=== PATIENT | male | born 1955 | race Caucasian/White ===

== ENCOUNTER 2018-11-18 02:48 | Observation (INO) | payer OTHER ==
--- NOTE | 2018-11-18 03:17 | ER ---
Nurse's Notes [facility] Name: Elpidio Sloan Age: 63 yrs Sex: Male : 1955 Arrival Date: 11/18/2018 Time: 02:54 Bed 5 Private MD: Diagnosis: Chest pain, unspecified;Obesity, unspecified;Dyspnea;Angina pectoris;Type 2 diabetes mellitus Presentation: 11/18 02:55 Presenting complaint: Patient states: Chest pain for the past few days but has worsened lp1 now, unable to lay down flat due to worsening pain; States radiating to back. Transition of care: patient was not received from another setting of care. Onset of symptoms was November 18, 2018. Risk Assessment: Do you want to hurt yourself or someone else? Patient reports no desire to harm self or others. Initial Sepsis Screen: Does the patient meet any 2 criteria? No. Patient's initial sepsis screen is negative. Does the patient have a suspected source of infection? No. Patient's initial sepsis screen is negative. Care prior to arrival: None. 02:55 Method Of Arrival: Wheelchair lp1 02:55 Acuity: JULIEN 3 lp1 Historical: - Allergies: 03:00 Iodine; lp1 03:00 Sulfa (Sulfonamide Antibiotics); lp1 03:00 TETRACYCLINES; lp1 - Home Meds: 03:00 glimepiride 4 mg Oral tab 1 tab once daily [Active]; Synjardy 12.5-1,000 mg oral tab lp1 [Active]; isosorbide mononitrate 30 mg Oral Tb24 [Active]; atenolol 50 mg Oral tab [Active]; fenofibrate nanocrystallized 145 mg oral tab [Active]; Effient 10 mg Oral tab 1 tab once daily [Active]; Lipitor 80 mg Oral tab 1 tab once daily [Active]; lansoprazole 30 mg oral cpDR once daily [Active]; quinapril 10 mg Oral tab 1 tab once daily [Active]; venlafaxine 75 mg oral cp24 1 cap once daily [Active]; quetiapine 25 mg oral tab [Active]; - PMHx: 03:00 CAD; Depression; Diabetes - NIDDM; GERD; High Cholesterol; Hyperlipidemia; lp1 Hypertension; Myocardial infarction; - PSHx: 03:00 CABG; Heart stents x6; Partial knee replacement; lp1 - Immunization history:: Adult Immunizations up to date. - Ebola Screening: : No symptoms or risks identified at this time. - Social history:: Smoking status: Patient/guardian denies using tobacco. - Family history:: not pertinent. Screenin:01 Abuse screen: Denies threats or abuse. Denies injuries from another. Nutritional lp1 screening: No deficits noted. Tuberculosis screening: No symptoms or risk factors identified. Fall Risk None identified. Assessment: 03:05 General: Appears in no apparent distress. comfortable, Behavior is calm, cooperative, ca1 appropriate for age. Pain: Complains of pain in chest Pain currently is 5 out of 10 on a pain scale. Neuro: Level of Consciousness is awake, alert, obeys commands, Oriented to person, place, time, situation. Cardiovascular: Heart tones S1 S2 present Capillary refill < 3 seconds Patient's skin is warm and dry. Respiratory: Airway is patent Trachea midline Respiratory effort is even, unlabored, Respiratory pattern is regular, symmetrical, Breath sounds are clear bilaterally. GI: Abdomen is round non-distended, Bowel sounds present X 4 quads. Abd is soft and non tender X 4 quads. : No signs and/or symptoms were reported regarding the genitourinary system. EENT: No signs and/or symptoms were reported regarding the EENT system. Derm: Skin is intact, is healthy with good turgor, Skin is pink, warm \T\ dry. Musculoskeletal: Circulation, motion, and sensation intact. Capillary refill < 3 seconds, Range of motion: intact in all extremities. 04:05 Reassessment: Patient appears in no apparent distress at this time. Patient and/or ca1 family updated on plan of care and expected duration. Pain level reassessed. Patient is alert, oriented x 3, equal unlabored respirations, skin warm/dry/pink. Awaiting lab results before calling report and admitting patient to 2nd floor. 05:25 Reassessment: Patient appears in no apparent distress at this time. Patient and/or ca1 family updated on plan of care and expected duration. Pain level reassessed. Patient is alert, oriented x 3, equal unlabored respirations, skin warm/dry/pink. Vital Signs: 02:56 BP 141 / 105; Pulse 80; Resp 16; Temp 98.4(O); Pulse Ox 99% on R/A; Weight 111.13 kg; lp1 Height 5 ft. 10 in. (177.80 cm); Pain 5/10; 04:05 BP 124 / 74; Pulse 68; Resp 17; Pulse Ox 97% on R/A; Pain 2/10; ca1 04:30 BP 126 / 86; Pulse 68; Resp 18; Pulse Ox 96% on R/A; ca1 05:15 BP 133 / 80; Pulse 66; Resp 19; Pulse Ox 96% on R/A; ca1 05:43 BP 126 / 66; Pulse 66; Resp 19; Pulse Ox 97% on R/A; ca1 02:56 Body Mass Index 35.15 (111.13 kg, 177.80 cm) lp1 ED Course: 02:54 Patient arrived in ED. al2 02:56 Triage completed. lp1 02:57 Vikas Dong MD is Attending Physician. jacey 02:57 Arm band placed on left wrist. lp1 03:01 Patient has correct armband on for positive identification. Placed in gown. Bed in low lp1 position. conveyor monitor on. Pulse ox on. NIBP on. 03:01 EKG done, by ED staff, reviewed by Vikas Dong MD. lp1 03:05 Warm blanket given. ca1 03:10 Missed attempt(s): 20 gauge in left forearm. ca1 03:14 Smith Cerrato MD is Hospitalizing Provider. jacey 03:15 X-ray completed. Portable x-ray completed in exam room. Patient tolerated procedure kw well. 03:16 XRAY Chest (1 view) In Process Unspecified. EDMS 03:19 Inserted saline lock: 20 gauge in left antecubital area, using aseptic technique. lt1 03:43 Rae Ji, RN is Primary Nurse. ca1 03:55 No provider procedures requiring assistance completed. Patient admitted, IV remains in ca1 place. Administered Medications: 03:10 Drug: Aspirin 162 mg Route: PO; ca1 04:09 Follow up: Response: No adverse reaction ca1 03:12 Drug: Lopressor (metoprolol TARTRATE) 50 mg Route: PO; ca1 04:09 Follow up: Response: No adverse reaction; Blood pressure is lowered ca1 03:13 Drug: Lovenox 1 mg/kg Route: Sub-Q; Site: right lower abdomen; ca1 04:10 Follow up: Response: No adverse reaction ca1 03:30 Drug: morphine 2 mg Route: IVP; Site: left antecubital; ca1 04:10 Follow up: Response: No adverse reaction; Pain is decreased ca1 03:32 Drug: Zofran 4 mg Route: IVP; Site: left antecubital; ca1 04:10 Follow up: Response: No adverse reaction; Nausea is decreased ca1 03:35 Drug: ProTONIX 40 mg Route: IVP; Site: left antecubital; ca1 04:11 Follow up: Response: No adverse reaction ca1 03:50 Drug: Isosorbide Mononitrate 30 mg Route: PO; ca1 04:11 Follow up: Response: No adverse reaction ca1 05:48 Drug: morphine 2 mg Route: IVP; Site: left antecubital; ca1 05:50 Follow up: Response: No adverse reaction; Pain is decreased ca1 Outcome: 03:16 Decision to Hospitalize by Provider. jacey 05:35 Admitted to Med/surg accompanied by tech, via wheelchair, room 224, with chart, Report ca1 called to Geovany Lee RN 05:35 Condition: stable 05:35 Instructed on the need for admit, Demonstrated understanding of instructions. 05:59 Patient left the ED. ca1 Signatures: Dispatcher [employer] EDMS Vikas Dong MD MD cha Whitley, Kimberlee kw Pena, Laura RN RN lp1 Jovita Emanuel Cheryl RN RN ca1 Rupa Rivas lt1 Corrections: (The following items were deleted from the chart) 03:54 03:44 General: Appears in no apparent distress. comfortable, Behavior is calm, ca1 cooperative, appropriate for age, ca1 03:54 03:44 Pain: Complains of pain in chest Pain currently is 5 out of 10 on a pain scale. ca1 ca1 03:54 03:44 Neuro: Level of Consciousness is awake, alert, obeys commands, Oriented to ca1 person, place, time, situation, ca1 03:54 03:44 Cardiovascular: Heart tones S1 S2 present Capillary refill < 3 seconds Patient's ca1 skin is warm and dry. ca1 03:54 03:44 Respiratory: Airway is patent Trachea midline Respiratory effort is even, ca1 unlabored, Respiratory pattern is regular, symmetrical, Breath sounds are clear bilaterally. ca1 03:54 03:44 GI: Abdomen is round non-distended, Bowel sounds present X 4 quads. Abd is soft ca1 and non tender X 4 quads. ca1 : 03:44 : No signs and/or symptoms were reported regarding the genitourinary system. ca1ca1 03:44 EENT: No signs and/or symptoms were reported regarding the EENT system. ca1 ca1 03:44 Derm: Skin is intact, is healthy with good turgor, Skin is pink, warm \T\ dry. ca1 ca1 03:44 Musculoskeletal: Circulation, motion, and sensation intact. Capillary refill < 3 ca1 seconds, Range of motion: intact in all extremities, ca1
--- NOTE | 2018-11-18 03:17 | EDPHYS ---
Physician Documentation [facility] Name: Elpidio Sloan Age: 63 yrs Sex: Male : 1955 Arrival Date: 11/18/2018 Time: 02:54 Bed 5 Private MD: KASIA Physician Vikas Dong HPI: 11/18 03:07 This 63 yrs old Male presents to ER via Wheelchair with complaints of chest jacey pain and sob. 03:07 The patient has shortness of breath at rest, with light activity. Onset: The jacey symptoms/episode began/occurred 4 day(s) ago. Duration: The symptoms are intermittent, with episodes lasting minutes at a time. The patient's shortness of breath is aggravated by exertion, light activity, walking, is alleviated by elevating head, rest, application of supplemental oxygen. The patient or guardian reports chest pain that is located primarily in the epigastric area. Onset: 5 day(s) ago. The pain radiates to the left arm. Associated signs and symptoms: The patient has no apparent associated signs or symptoms. Severity of symptoms: At their worst the symptoms were mild moderate in the emergency department the symptoms have improved moderately. Associated signs and symptoms: Pertinent positives: lightheadedness, shortness of breath. Historical: - Allergies: 03:00 Iodine; lp1 03:00 Sulfa (Sulfonamide Antibiotics); lp1 03:00 TETRACYCLINES; lp1 - Home Meds: 03:00 glimepiride 4 mg Oral tab 1 tab once daily [Active]; Synjardy 12.5-1,000 mg oral tab lp1 [Active]; isosorbide mononitrate 30 mg Oral Tb24 [Active]; atenolol 50 mg Oral tab [Active]; fenofibrate nanocrystallized 145 mg oral tab [Active]; Effient 10 mg Oral tab 1 tab once daily [Active]; Lipitor 80 mg Oral tab 1 tab once daily [Active]; lansoprazole 30 mg oral cpDR once daily [Active]; quinapril 10 mg Oral tab 1 tab once daily [Active]; venlafaxine 75 mg oral cp24 1 cap once daily [Active]; quetiapine 25 mg oral tab [Active]; - PMHx: 03:00 CAD; Depression; Diabetes - NIDDM; GERD; High Cholesterol; Hyperlipidemia; lp1 Hypertension; Myocardial infarction; - PSHx: 03:00 CABG; Heart stents x6; Partial knee replacement; lp1 - Immunization history:: Adult Immunizations up to date. - Ebola Screening: : No symptoms or risks identified at this time. - Social history:: Smoking status: Patient/guardian denies using tobacco. - Family history:: not pertinent. ROS: 03:07 Constitutional: Negative for fever, chills, and weight loss, Eyes: Negative for injury, jacey pain, redness, and discharge, ENT: Negative for injury, pain, and discharge, Neck: Negative for injury, pain, and swelling, Abdomen/GI: Negative for abdominal pain, nausea, vomiting, diarrhea, and constipation, Back: Negative for injury and pain, : Negative for injury, bleeding, discharge, and swelling, MS/Extremity: Negative for injury and deformity, Skin: Negative for injury, rash, and discoloration, Neuro: Negative for headache, weakness, numbness, tingling, and seizure, Psych: Negative for depression, anxiety, suicide ideation, homicidal ideation, and hallucinations, Allergy/Immunology: Negative for hives, rash, and allergies, Endocrine: Negative for neck swelling, polydipsia, polyuria, polyphagia, and marked weight changes, Hematologic/Lymphatic: Negative for swollen nodes, abnormal bleeding, and unusual bruising. 03:07 Cardiovascular: Positive for chest pain. 03:07 Respiratory: Positive for shortness of breath, on exertion. Exam: 03:07 Constitutional: This is a well developed, well nourished patient who is awake, alert, jacey and in no acute distress. Head/Face: Normocephalic, atraumatic. Eyes: Pupils equal round and reactive to light, extra-ocular motions intact. Lids and lashes normal. Conjunctiva and sclera are non-icteric and not injected. Cornea within normal limits. Periorbital areas with no swelling, redness, or edema. ENT: Nares patent. No nasal discharge, no septal abnormalities noted. Tympanic membranes are normal and external auditory canals are clear. Oropharynx with no redness, swelling, or masses, exudates, or evidence of obstruction, uvula midline. Mucous membranes moist. Neck: Trachea midline, no thyromegaly or masses palpated, and no cervical lymphadenopathy. Supple, full range of motion without nuchal rigidity, or vertebral point tenderness. No Meningismus. Chest/axilla: Normal chest wall appearance and motion. Nontender with no deformity. No lesions are appreciated. Cardiovascular: Regular rate and rhythm with a normal S1 and S2. No gallops, murmurs, or rubs. Normal PMI, no JVD. No pulse deficits. Respiratory: Lungs have equal breath sounds bilaterally, clear to auscultation and percussion. No rales, rhonchi or wheezes noted. No increased work of breathing, no retractions or nasal flaring. Abdomen/GI: Soft, non-tender, with normal bowel sounds. No distension or tympany. No guarding or rebound. No evidence of tenderness throughout. Back: No spinal tenderness. No costovertebral tenderness. Full range of motion. Skin: Warm, dry with normal turgor. Normal color with no rashes, no lesions, and no evidence of cellulitis. MS/ Extremity: Pulses equal, no cyanosis. Neurovascular intact. Full, normal range of motion. Neuro: Awake and alert, GCS 15, oriented to person, place, time, and situation. Cranial nerves II-XII grossly intact. Motor strength 5/5 in all extremities. Sensory grossly intact. Cerebellar exam normal. Normal gait. Psych: Awake, alert, with orientation to person, place and time. Behavior, mood, and affect are within normal limits. Vital Signs: 02:56 BP 141 / 105; Pulse 80; Resp 16; Temp 98.4(O); Pulse Ox 99% on R/A; Weight 111.13 kg; lp1 Height 5 ft. 10 in. (177.80 cm); Pain 5/10; 04:05 BP 124 / 74; Pulse 68; Resp 17; Pulse Ox 97% on R/A; Pain 2/10; ca1 04:30 BP 126 / 86; Pulse 68; Resp 18; Pulse Ox 96% on R/A; ca1 05:15 BP 133 / 80; Pulse 66; Resp 19; Pulse Ox 96% on R/A; ca1 05:43 BP 126 / 66; Pulse 66; Resp 19; Pulse Ox 97% on R/A; ca1 02:56 Body Mass Index 35.15 (111.13 kg, 177.80 cm) lp1 MDM: 02:57 Patient medically screened. [facility] 03:13 Data reviewed: vital signs, nurses notes, lab test result(s), EKG, radiologic studies, jacey CT scan, plain films. 11/18 02:55 Order name: Basic Metabolic Panel lp1 11/18 02:55 Order name: CBC with Diff; Complete Time: 04:03 lp1 11/18 02:55 Order name: LFT's lp1 11/18 02:55 Order name: Magnesium lp1 11/18 02:55 Order name: NT PRO-BNP lp1 11/18 02:55 Order name: PT-INR; Complete Time: 04:03 lp1 11/18 02:55 Order name: Troponin (emerg Dept Use Only) lp1 11/18 02:55 Order name: XRAY Chest (1 view) lp1 11/18 03:07 Order name: Lipase [facility] 11/18 03:25 Order name: Lipase EDKS 11/18 02:55 Order name: EKG; Complete Time: 02:56 lp1 11/18 02:55 Order name: Cardiac monitoring; Complete Time: 03:07 lp1 11/18 02:55 Order name: EKG - Nurse/Tech; Complete Time: 03:07 lp1 11/18 02:55 Order name: IV Saline Lock; Complete Time: 03:08 lp1 11/18 02:55 Order name: Labs collected and sent; Complete Time: 03:08 lp1 11/18 02:55 Order name: O2 Per Protocol; Complete Time: 03:08 lp1 11/18 02:55 Order name: O2 Sat Monitoring; Complete Time: 03:08 lp1 11/18 03:22 Order name: CONS Physician Consult EDKS Administered Medications: 03:10 Drug: Aspirin 162 mg Route: PO; ca1 04:09 Follow up: Response: No adverse reaction ca1 03:12 Drug: Lopressor (metoprolol TARTRATE) 50 mg Route: PO; ca1 04:09 Follow up: Response: No adverse reaction; Blood pressure is lowered ca1 03:13 Drug: Lovenox 1 mg/kg Route: Sub-Q; Site: right lower abdomen; ca1 04:10 Follow up: Response: No adverse reaction ca1 03:30 Drug: morphine 2 mg Route: IVP; Site: left antecubital; ca1 04:10 Follow up: Response: No adverse reaction; Pain is decreased ca1 03:32 Drug: Zofran 4 mg Route: IVP; Site: left antecubital; ca1 04:10 Follow up: Response: No adverse reaction; Nausea is decreased ca1 03:35 Drug: ProTONIX 40 mg Route: IVP; Site: left antecubital; ca1 04:11 Follow up: Response: No adverse reaction ca1 03:50 Drug: Isosorbide Mononitrate 30 mg Route: PO; ca1 04:11 Follow up: Response: No adverse reaction ca1 05:48 Drug: morphine 2 mg Route: IVP; Site: left antecubital; ca1 05:50 Follow up: Response: No adverse reaction; Pain is decreased ca1 Disposition: 11/18/18 03:16 Hospitalization ordered by Smith Cerrato for Observation. Preliminary diagnosis are Chest pain, unspecified, Obesity, unspecified, Dyspnea, Angina pectoris, Type 2 diabetes mellitus. - Bed requested for Telemetry/MedSurg (observation). - Status is Observation. ca1 - Condition is Stable. - Problem is new. - Symptoms have improved. UTI on Admission? No Signatures: Dispatcher [employer] EDKS Mayela Patel RN RN mw Anderson, Corey, MD MD cha Pena, Laura, RN RN lp1 Rae Ji RN RN ca1 Corrections: (The following items were deleted from the chart) 03:25 03:08 Lipase ordered. EDKS EDMS 03:40 03:16 Hospitalization Ordered by Smith Cerrato MD for Observation. Preliminary diagnosis mw is Chest pain, unspecified; Obesity, unspecified; Dyspnea; Angina pectoris; Type 2 diabetes mellitus. Bed requested for Telemetry/MedSurg (observation). Status is Observation. Condition is Stable. Problem is new. Symptoms have improved. UTI on Admission? No. jacey 05:59 03:40 11/18/2018 03:16 Hospitalization Ordered by Smith Cerrato MD for Observation. ca1 Preliminary diagnosis is Chest pain, unspecified; Obesity, unspecified; Dyspnea; Angina pectoris; Type 2 diabetes mellitus. Bed requested for Telemetry/MedSurg (observation). Status is Observation. Condition is Stable. Problem is new. Symptoms have improved. UTI on Admission? No. mw
[2018-11-18] MEDS ORDERED: ASPIRIN 81 MG CHEWABLE TABLET ONE (03:23)
[2018-11-18] MEDS ORDERED: METOPROLOL TAR 50 MG TAB ONE (03:23)
[2018-11-18] MEDS ORDERED: ENOXAPARIN 100 MG/ML SYR SQ ONE (03:24)
[2018-11-18 03:31] LABS: Absolute Lymphocytes (CBC) 1.9 K/uL (0.7-4.9); Absolute Monocytes 0.6 K/uL (0.1-1.3); Absolute Neutrophil 2.1 K/uL (1.8-8.0); Basophils % 1.2 % (0-1.3); Eosinophils % 3.8 % (0-4.4); Hematocrit 47.8 % (39.6-49.0); MPV 8.7 fL (7.6-11.3); Monocytes % 13.2 % (3.3-12.3); RBC Red Blood Cell Count 5.16 M/uL (4.33-5.43)
[2018-11-18 03:32] LABS: Protime INR 0.92
[2018-11-18] MEDS ORDERED: PANTOPRAZOLE 40 MG INJ ONE (03:37)
[2018-11-18] MEDS ORDERED: MORPHINE 4 MG/ML SYR ONE (03:37)
[2018-11-18] MEDS ORDERED: WATER FOR INJ,STERILE 10 ML ONE (03:38)
[2018-11-18] MEDS ORDERED: ONDANSETRON 4 MG/2 ML VIAL ONE (03:41)
[2018-11-18] MEDS ORDERED: ISOSORBIDE MONO SR 30 MG TAB PO ONE (03:55)
[2018-11-18] MEDS ORDERED: ONDANSETRON 4 MG/2 ML VIAL IV PRN (04:01)
[2018-11-18] MEDS ORDERED: GLUCAGON 1 MG/VIAL IM PRN (04:01)
[2018-11-18] MEDS ORDERED: ACETAMINOPHEN 500 MG TAB PO PRN (04:01)
[2018-11-18] MEDS ORDERED: MORPHINE 4 MG/ML SYR IV PRN (04:01)
[2018-11-18] MEDS ORDERED: SODIUM CHLORIDE 0.9% 10ML INJ IV PRN (04:01)
[2018-11-18] MEDS ORDERED: D50W 25 GM/50 ML SYRINGE IV PRN (04:01)
[2018-11-18 04:03] LABS: Albumin 3.8 g/dL (3.4-5.0); Bilirubin Direct 0.2 mg/dL (0-0.2); Bilirubin Total 0.6 mg/dL (0.2-1.0); Magnesium 2.3 mg/dL (1.8-2.4); Potassium 4.2 mmol/L (3.5-5.1); Protein, Total 7.3 g/dL (6.4-8.2); Troponin (Emerg Dept Use Only) 0.02 ng/mL (0.0-0.045)
[2018-11-18] MEDS ORDERED: ATENOLOL 50 MG TAB PO SCH (06:00)
[2018-11-18 06:38] LABS: Urine Appearance CLEAR; Urine Bilirubin NEGATIVE (NEG); Urine Blood NEGATIVE (NEG); Urine Color YELLOW; Urine Glucose 3+ (NEG); Urine Protein NEGATIVE (NEG); Urine Specific Gravity >=1.030 (1.005-1.030); Urine pH 5.5 (5.0-7.0)
[2018-11-18 06:51] LABS: Urine Microscopic Reflex ORDER UMIC
[2018-11-18 06:52] LABS: Urine Bacteria <20 /HPF (NONE SEEN); Urine Culture Reflex Order NOT NEEDED; Urine RBC <5 /HPF (NONE SEEN)
[2018-11-18] MEDS: INSULIN -REGULAR HUMAN 50 UNIT/0.5 ML ML SQ SCH ×4 (07:30→22:02)
--- NOTE | 2018-11-18 07:34 | EKG ---
Test Date: 2018-11-18 Test Time: 02:55:29 Sheep Shearer: NEISHA MEASUREMENT RESULTS: Intervals: Rate: 74 NC: 198 QRSD: 142 QT: 402 QTc: 446 Mcdowell: P: 64 NC: 198 QRS: -57 T: 82 INTERPRETIVE STATEMENTS: Normal sinus rhythm Left axis deviation Right bundle branch block T wave abnormality, consider lateral ischemia Abnormal ECG Compared to ECG 07/19/2017 22:35:21 Left-axis deviation now present T-wave abnormality still present Possible ischemia still present Electronically Signed On 11-18-18 07:33:42 EMERGENCY DEPARTMENT COORDINATOR by Samson Shaw
[2018-11-18 07:35] VITALS: BMI 36.0
--- NOTE | 2018-11-18 08:30 | RAD REPORT ---
EXAM DESCRIPTION: Reji Single View11/18/2018 3:18 am CLINICAL HISTORY: Chest pain COMPARISON: 2017 FINDINGS: The lungs appear clear of acute infiltrate. The heart is mildly enlarged. Postsurgical changes involve the chest. IMPRESSION: No acute abnormalities displayed
[2018-11-18] MEDS ORDERED: PRASUGREL (EFFIENT) 10 MG TAB PO SCH (09:00)
[2018-11-18] MEDS: ASPIRIN EC 81 MG TAB PO SCH (09:00)
[2018-11-18] MEDS ORDERED: ISOSORBIDE MONO SR 30 MG TAB PO SCH (09:00)
[2018-11-18] MEDS ORDERED: PANTOPRAZOLE 40 MG INJ IVP SCH (09:00)
[2018-11-18] MEDS ORDERED: PNEUMOCOCCAL VACCINE 0.5 ML IMVAC ONE (09:00)
[2018-11-18] MEDS: LISINOPRIL 10 MG TAB PO SCH (09:51)
[2018-11-18] MEDS ORDERED: HEPA 1000U/500MLS 1,000 UNIT/500 ML BAG IV ONE ×2 (12:14→12:15)
[2018-11-18] MEDS ORDERED: ATROPINE SULF 1 MG/10 ML SYR IV ONE ×2 (12:15→13:29)
[2018-11-18] MEDS ORDERED: FENTANYL CITR 100 MCG/2 ML ONE (12:15)
[2018-11-18] MEDS ORDERED: NA CHLORIDE 0.9% 50 ML ONE (12:15)
[2018-11-18] MEDS ORDERED: MIDAZOLAM HCL 2 MG/2 ML INJ ONE ×2 (12:15→12:58)
[2018-11-18] MEDS ORDERED: LIDOCAINE 1% MPF 5 ML VIAL ONE (12:29)
[2018-11-18] MEDS ORDERED: NA CHLORIDE 0.9% 500 ML ONE (12:42)
[2018-11-18] MEDS ORDERED: METHYLPREDNISOLONE 125 MG INJ ONE (12:52)
[2018-11-18] MEDS ORDERED: CLOPIDOGREL 75 MG TABLET ONE (13:31)
[2018-11-18] MEDS ORDERED: ENOXAPARIN 100 MG/ML SYR SQ SCH (15:00)
[2018-11-18] MEDS ORDERED: NA CHLORIDE 0.9% 1,000 ML IV SCH (16:00)
[2018-11-18] MEDS ORDERED: ATORVASTATIN 80 MG TAB PO SCH (21:00)
[2018-11-18] MEDS ORDERED: QUETIAPINE 25 MG TAB PO PRN (21:21)
--- NOTE | 2018-11-18 21:40 | P.SSS ---
Patient History Date of Service: 11/18/18 Reason for admission: CHEST PAIN History of Present Illness: L SIDE CHEST PAIN WITH RADIATION TO ARM. HE IS A DIABETIC WITH KNOWN CAD. Allergies codeine [Codeine] Allergy (Intermediate, Verified 11/18/18 06:12) ITCH, VOMIT Sulfa (Sulfonamide Antibiotics) [Sulfa(Sulfonamide Antibiotics)] Allergy ( Intermediate, Verified 11/18/18 06:12) ITCH iodine [Iodine] Adverse Reaction (Severe, Verified 11/18/18 06:12) Anaphylaxis Tetracyclines Adverse Reaction (Verified 11/18/18 06:12) Hives Home medications list reviewed: Yes Home Medications: Atenolol 50 mg PO BID 11/18/18 Atorvastatin Calcium [Lipitor] 80 mg PO DAILY 11/18/18 Empagliflozin/Metformin HCl [Synjardy Xr 25-1,000 mg Tablet] 1 each PO DAILY 06/29 Fenofibrate [Tricor] 145 mg PO DAILY 11/18/18 Glimepiride 4 mg PO BID 11/18/18 Isosorbide Mononitrate [Isosorbide Mononitrate ER] 30 mg PO DAILY 11/18/18 Lansoprazole 30 mg PO DAILY 11/18/18 Prasugrel HCl [Effient] 10 mg PO DAILY 11/18/18 Quetiapine [Seroquel] 25 mg PO BEDTIME PRN 11/18/18 Quinapril HCl 10 mg PO DAILY 11/18/18 Venlafaxine HCl [Venlafaxine HCl ER] 75 mg PO DAILY 11/18/18 - Past Medical/Surgical History Has patient received pneumonia vaccine in the past: No Diabetic: Yes -: dm -: heart attack -: cad -: gerd -: htn -: heart stent (5x) -: bypass LAD graft -: partial knee sx (left) - Family History Family History: Reviewed- Non-Contributory - Family History Father -: Heart disease Mother -: Diabetes - Social History Smoking Status: Never smoker Alcohol use: Yes CD- Drugs: No Caffeine use: Yes Place of Residence: Home Physical Examination - Vital Signs Temperature: 97.9 F Blood Pressure: 141/72 Pulse: 80 Respirations: 18 Pulse Ox (%): 98 - Physical Exam General: Alert, In no apparent distress, Obese HEENT: Atraumatic, PERRLA, Mucous membr. moist/pink, EOMI, Sclerae nonicteric Neck: Supple, 2+ carotid pulse no bruit, No LAD, Without JVD or thyroid abnormality Respiratory: Clear to auscultation bilaterally, Normal air movement Cardiovascular: Regular rate/rhythm, Normal S1 S2 Gastrointestinal: Normal bowel sounds, No tenderness Musculoskeletal: No tenderness Integumentary: No rashes Neurological: Normal gait, Normal speech, Normal strength at 5/5 x4 extr, Normal tone, Normal affect Lymphatics: No axilla or inguinal lymphadenopathy - Studies Laboratory Data (last 24 hrs) 11/18/18 03:10: PT 10.9, INR 0.92 11/18/18 03:10: WBC 4.9, Hgb 15.9, Hct 47.8, Plt Count 154 11/18/18 03:10: Sodium 138, Potassium 4.2, BUN 17, Creatinine 1.31 H, Glucose 266 H, Magnesium 2.3, Total Bilirubin 0.6, AST 55 H, ALT 96 H, Alkaline Phosphatase 59, Lipase 250 11/18/18 03:07: Lipase Cancelled - Diagnosis (Problem(s)) (1) CAD (coronary artery disease) Onset Date: 11/28/16 Current Visit: No Status: Acute Plan: CFX STENT PLACED TODAY. STABLE, WILL GO HOME IN AM. DR. MACHADO CALLED Qualifiers: Coronary Disease-Associated Artery/Lesion type: [place] artery [place] vs. transplanted heart: [place] heart Associated angina: with stable angina Qualified Code(s): I25.118 - Atherosclerotic heart disease of [place] coronary artery with other forms of angina pectoris (2) Chest pain Current Visit: No Status: Acute Qualifiers: Chest pain type: chest pain due to myocardial ischemia Ischemic chest pain type: stable angina pectoris Qualified Code(s): I20.8 - Other forms of angina pectoris (3) Diabetes Current Visit: No Status: Chronic Plan: FU A1C DONE AT OFFICE. Qualifiers: Diabetes mellitus type: type 2 Diabetes mellitus complication status: with circulatory complication - Disposition Disposition: ROUTINE DISCHARGE
[2018-11-18] MEDS: ENOXAPARIN 100 MG/ML SYR SQ SCH (22:02)
[2018-11-19] MEDS ORDERED: ATENOLOL 50 MG TAB PO SCH ×2 (06:00→09:00)
[2018-11-19 06:14] LABS: Absolute Lymphocytes (CBC) 1.4 K/uL (0.7-4.9); Absolute Monocytes 0.3 K/uL (0.1-1.3); Absolute Neutrophil 6.1 K/uL (1.8-8.0); Basophils % 0.2 % (0-1.3); Hematocrit 44.9 % (39.6-49.0); Lymphocytes % 18.2 % (15.3-44.8); MPV 8.9 fL (7.6-11.3); Monocytes % 4.4 % (3.3-12.3); RBC Red Blood Cell Count 4.86 M/uL (4.33-5.43)
[2018-11-19 06:20] LABS: Potassium 4.1 mmol/L (3.5-5.1)
[2018-11-19] MEDS: INSULIN -REGULAR HUMAN 50 UNIT/0.5 ML ML SQ SCH (07:30)
[2018-11-19] MEDS ORDERED: GLIMEPIRIDE 2 MG TABLET PO SCH (08:00)
[2018-11-19 08:55] VITALS: BP 121/68; TEMP 97
[2018-11-19] MEDS ORDERED: FENOFIBRATE 160 MG TAB PO SCH (09:00)
[2018-11-19] MEDS ORDERED: EMPAGLIFLOZIN PO SCH (09:00)
[2018-11-19] MEDS ORDERED: ATORVASTATIN 80 MG TAB PO SCH (09:00)
[2018-11-19] MEDS: ASPIRIN EC 81 MG TAB PO SCH (09:00)
[2018-11-19] MEDS ORDERED: LISINOPRIL 10 MG TAB PO SCH (09:00)
[2018-11-19] MEDS: ENOXAPARIN 100 MG/ML SYR SQ SCH (09:00)
[2018-11-19] MEDS ORDERED: PANTOPRAZOLE 40MG TABLET PO SCH (09:00)
[2018-11-19] MEDS ORDERED: ISOSORBIDE MONO SR 30 MG TAB PO SCH ×2 (09:00)
[2018-11-19] MEDS ORDERED: VENLAFAXINE HCL XR 75 MG CAP PO SCH (09:00)
[2018-11-19] MEDS ORDERED: METFORMIN HCL PO SCH (09:00)
[2018-11-19] MEDS ORDERED: PRASUGREL (EFFIENT) 10 MG TAB PO SCH (09:00)
[2018-11-19] MEDS: LISINOPRIL 10 MG TAB PO SCH (09:07)
[2018-11-19 11:51] VITALS: O2SAT 96
--- NOTE | 2018-11-19 12:23 | CON ---
Date of Consultation: 11/18/[address] Cerrato's service on 11/18/2018. I saw the patient on 11/18/2018. Reason For Consultation: Unstable angina. History Of Present Illness: Mr. Sloan is a 63-year-old white male. He is very well known to me from previous office visits and admissions. He has a history of diabetes, hypertension, dyslipidemia, de pression, coronary artery disease. He is status post CABG with a NICE to the LAD. He is status post multiple angioplasties and stents in even brachytherapy of the obtuse marginal. He is known to have a very small and dominant RCA. His last intervention was approximately a year and half ago. He com es in with mid-epigastric chest pressure, pain, burning sensation radiating to the jaw and the left a rm that has lasted for about 2 hours. He had some nausea but no vomiting, and had some diaphoresis. He ruled out cardiomyopathy with a negative troponin. He had a negative chest x-ray and an EKG show ing right bundle-branch block. Allergies: ALLERGIC TO IODINE, CODEINE, SULFA, AND PENICILLIN. Review of Systems: Negative. Social History: Negative. Family History: Positive for heart disease in his brother and father. Home Medications: Atenolol, Imdur, Lipitor Effient, Prevacid, quinapril, Seroquel, venlafaxine, glim epiride, Tricor, Synjardy, Lipitor, atenolol. Physical Examination: Vital Signs: Stable. He was in mild distress. He was in normal sinus rhythm, afebrile. HEENT: Negative. Neck: Supple with without any bruit, lymphadenopathy, JVD, or thyromegaly. Chest: Clear to auscultation and percussion. Cardiac: Revealed a regular rhythm and rate without any murmurs, gallops, or rubs. Abdomen: Obese, but benign. Extremities: Revealed no clubbing, cyanosis, or edema. Skin: Dry and intact. NEUROLOGIC: He was nonfocal. Diagnostic Data: As stated earlier, but also include a creatinine of 1.31, glucose of 266. His AST was 55, ALT was 96. Impression And Plan: 1.Unstable angina syndrome in a patient with history of coronary artery disease, status post left in ternal mammary artery to the left anterior descending, status post obtuse marginal stenting, angiopla sty, and brachytherapy, known small right coronary artery disease. The symptoms are classic for unst able angina. We will proceed with left heart catheterization with possible intervention. The patien t understands the risk and the benefit of the procedure and he agreed to proceed. We will continue h is present regimen for now. 2.Dyslipidemia. 3.Diabetes, well controlled. 4.Depression. 5.Gastroesophageal reflux disease. 6.Hypertension. 7.Allergy to iodine. We will give him IV Solu-Medrol prior to the procedure. RIC/CHRIS Voice ID: [id number] Report ID: [id number]
--- NOTE | 2018-11-19 13:26 | EKG ---
Test Date: 2018-11-19 Test Time: 07:53:37 Windshield Technician: BEKAH MEASUREMENT RESULTS: Intervals: Rate: 75 HI: 184 QRSD: 144 QT: 426 QTc: 475 [place]: P: 77 HI: 184 QRS: -56 T: 57 INTERPRETIVE STATEMENTS: Normal sinus rhythm Right bundle branch block Left axis T wave abnormality, consider lateral ischemia Abnormal ECG Compared to ECG 11/18/2018 02:55:29 T-wave abnormality still present Electronically Signed On 11-19-18 13:25:31 PUBLIC HEALTH CLINICAL NURSE SPECIALIST by Samson Shaw
--- NOTE | 2018-11-21 00:09 | PN ---
Date of Progress Note: 11/19/2018 Mr. Sloan is 63, was admitted on 11/18/2018 with unstable angina. He underwent a heart catheterizati on showing a patent NICE to the LAD with in-stent restenosis in the OM, a small nondominant RCA. An angioplasty was done in the OM with a 2.5 x 12 balloon within the stent at 14 atmosphere pressure, mu ltiple dilatations with 0% residual. Overnight, there were no reported telemetry changes. No report ed chest pain. No reported groin issues. He will be sent home with his home medications as before, which includes his Effient. He also wanted a renewal on his pantoprazole and that was done. He will see me in the office in 2 weeks. RIC/CHRIS Voice ID: [id number] Report ID: [id number]
--- NOTE | 2018-11-25 20:06 | OP ---
Date of Procedure: 11/18/2018 Surgeon: Tonio Lewis MD Color Room Attendant: Loreta Harvey. The patient received Angiomax during the procedure. He is on Effient at home. He will receive 300 o f Plavix here in the cath prior to going upstairs including aspirin. He will be discharged tomorrow. Procedures: Left heart catheterization, left internal mammary artery injection, angioplasty of the c ircumflex. Indications: Mr. Sloan had been admitted on 11/18/2018 with unstable angina symptoms and was sent to the slabbing machine operator as an inpatient. He was prepped and draped in the routine sterile fashion, given 2 mg of Versed for IV sedation. Right common femoral artery access was obtained with a 6-Tanzanian sheath. Angio-Seal was used to close the case. 6-Tanzanian catheters were used to do the diagnostic catheteriza tion. A JR4 was used to cannulate the RCA. It was small, diseased, nondominant. The left main was injected with JL4. He was found to have a completely occluded LAD. He was found to have 70% in-sten t restenosis of the OM. A JR4 was used to inject the NICE. The NICE was open with good distal flow in the LAD. The OM lesion was angioplastied with a 2.5 x 12 Emerge balloon with multiple dilatations throughout the stent with 10% residual. An XB3.5 LAD with 5-hole guide catheter was used. A Tignall wire 0.14 extra-support, extra length was used. The patient tolerated the procedure well. There we re no complications. Blood Loss: 5 cc. Final Diagnosis: Coronary artery disease status post angioplasty of the obtuse marginal that had end -stent restenosis. Total conscious sedation was 45 minutes. RIC/MODL Voice ID: [id number] Report ID: [id number]
== END 2018-11-19 11:35 | disposition home or self-care (01) ==
LOC: ER 02:48 → ERHOLD 03:19 → 2ND 05:43
PROVIDERS: ADMIT Internal Medicine; ATTEND Internal Medicine
DX: I25.110 Atherosclerotic heart disease of native coronary artery with unstable angina pectoris (principal); E11.9 Type 2 diabetes mellitus without complications; K21.9 Gastro-esophageal reflux disease without esophagitis; E78.5 Hyperlipidemia, unspecified; I10 Essential (primary) hypertension; F32.9 Major depressive disorder, single episode, unspecified; Z88.0 Allergy status to penicillin; Z88.2 Allergy status to sulfonamides
CPT/HCPCS: 36415 ×2; 71045; 80048 ×2; 80076; 82962 ×5; 83690; 83735; 83880; 84484 ×3; 85025 ×2; 85347 ×3; 85610; 93005 ×2; 93454; 96372; 96374; 96375; 99285; C1725; C1760; C1877; C1893; C9113; G0378 ×2; J0583; J1650 ×2; J2250 ×2; J2405; J2930; J3010; J7030; 81003; 81015

== ENCOUNTER 2024-05-17 15:01 | Emergency (ER) | payer OTHER ==
[2024-05-17] MEDS ORDERED: ATROPINE SULF 1 MG/10 ML SYR IV ONE (15:11)
[2024-05-17 15:22] LABS: Absolute Basophils 0.1 K/uL (0-0.5); Absolute Eosinophils 0.3 K/uL (0-0.5); Absolute Lymphocytes (CBC) 2.6 K/uL (0.7-4.9); Absolute Monocytes 0.5 K/uL (0.1-1.3); Absolute Neutrophil 3.2 K/uL (1.8-8.0); Basophils % 1.1 % (0-1.3); Eosinophils % 4.4 % (0-4.4); Hemoglobin 14.9 g/dL (13.6-17.9); Lymphocytes % 38.6 % (15.3-44.8); MCH 29.8 pg (27.0-35.0); MCHC 33.1 g/dL (32.0-36.0); MPV 8.6 fL (7.6-11.3); Neutrophils % 47.9 % (41.7-73.7); Platelets 157 thou/uL (152-406); Red Cell Distribution Width 14.8 % (12.1-15.2)
[2024-05-17 15:40] LABS: Troponin High Sensitivity 19.1 pg/mL (<58.9)
--- NOTE | 2024-05-17 16:00 | ER ---
Nurse's Notes [facility] Name: Elpidio Sloan Age: 69 yrs Sex: Male : 1955 Arrival Date: 05/17/2024 Time: 15:01 Bed 3 Private MD: Diagnosis: Bradycardia, unspecified Presentation: 05/17 15:16 Chief complaint: EMS states: Called to patient's home due to patient having a witnessed cm10 syncopal episode while sitting on the couch. EMS reports patient had 3 syncopal episodes in route and was feeling flushed and then had the syncopal episode. EMS reports pts heart rate was ranging from the 30s-90s. Pt arrived A\T\Ox4. Denies any chest pain or shortness of breath. Coronavirus screen: Client denies travel out of the [place] in the last 14 days. At this time, the client does not indicate any symptoms associated with coronavirus-19. Ebola Screen: Patient denies travel to an Ebola-affected area in the 21 days before illness onset. No symptoms or risks identified at this time. Initial Sepsis Screen: Does the patient meet any 2 criteria? No. Patient's initial sepsis screen is negative. Does the patient have a suspected source of infection? No. Patient's initial sepsis screen is negative. Risk Assessment: Do you want to hurt yourself or someone else? Patient reports no desire to harm self or others. Onset of symptoms was May 17, 2024. Care prior to arrival: Medication(s) given: Normal saline infusion, 500 mL, IV initiated. 18 GA, in the left antecubital area, Oxygen administered. 15:16 Method Of Arrival: [facility] cm10 15:16 Acuity: JULIEN 2 cm10 Triage Assessment: 15:20 General: Appears in no apparent distress. comfortable, Behavior is calm, cooperative. cm10 Pain: Denies pain. Neuro: No deficits noted. Level of Consciousness is awake, alert, obeys commands, Oriented to person, place, time, situation, Appropriate for age Reports a syncopal episode. Cardiovascular: No deficits noted. Patient's skin is warm and dry. Rhythm is irregular. Respiratory: No deficits noted. Airway is patent Respiratory effort is even, unlabored, Respiratory pattern is regular, symmetrical. Derm: No deficits noted. Skin is healthy with good turgor, Skin is pink, warm \T\ dry. Historical: - Allergies: 15:19 Iodine; cm10 15:19 Sulfa (Sulfonamide Antibiotics); cm10 15:19 TETRACYCLINES; cm10 - PMHx: 15:19 CAD; Hyperlipidemia; High Cholesterol; Myocardial infarction; GERD; Diabetes - NIDDM; cm10 Depression; Hypertension; - PSHx: 15:19 Coronary artery bypass graft; Cardiac stents X5; cm10 - Immunization history:: Adult Immunizations up to date. - Infectious Disease History:: Denies. - Social history:: Smoking status: Patient denies any tobacco usage or history of. Screenin:15 [facility] ED Fall Risk Assessment (Adult) History of falling in the last 3 months, kc6 including since admission No falls in past 3 months (0 pts) Confusion or Disorientation No (0 pts) Intoxicated or Sedated No (0 pts) Impaired Gait No (0 pts) Mobility Assist Device Used No (0 pt) Altered Elimination No (0 pt) Score/Fall Risk Level 0 - 2 = Low Risk. Abuse screen: Denies threats or abuse. Denies injuries from another. Nutritional screening: No deficits noted. Tuberculosis screening: No symptoms or risk factors identified. Assessment: 15:15 General: Appears in no apparent distress. comfortable, well groomed, well developed, kc6 Behavior is calm, cooperative, appropriate for age. Neuro: Level of Consciousness is awake, alert, obeys commands, Oriented to person, place, time, situation, Appropriate for age Reports headache a syncopal episode. Cardiovascular: Denies chest pain, shortness of breath, Heart tones S1 S2 present Capillary refill < 3 seconds Rhythm is sinus rhythm. Respiratory: Airway is patent Trachea midline Respiratory effort is even, unlabored, Respiratory pattern is regular, symmetrical. GI: No signs and/or symptoms were reported involving the gastrointestinal system. : No signs and/or symptoms were reported regarding the genitourinary system. EENT: No signs and/or symptoms were reported regarding the EENT system. Derm: No signs and/or symptoms reported regarding the dermatologic system. Skin is intact, is healthy with good turgor, Skin is pink, warm \T\ dry. Musculoskeletal: No signs and/or symptoms reported regarding the musculoskeletal system. Circulation, motion, and sensation intact. Capillary refill < 3 seconds, Range of motion: intact in all extremities. 16:15 Reassessment: Patient appears in no apparent distress at this time. No changes from kc6 previously documented assessment. Patient and/or family updated on plan of care and expected duration. Pain level reassessed. Patient is alert, oriented x 3, equal unlabored respirations, skin warm/dry/pink. Patient states feeling better. Patient states symptoms have improved. 17:01 Reassessment: Patient appears in no apparent distress at this time. No changes from kc6 previously documented assessment. Patient and/or family updated on plan of care and expected duration. Pain level reassessed. Patient is alert, oriented x 3, equal unlabored respirations, skin warm/dry/pink. 18:06 Reassessment: Patient appears in no apparent distress at this time. No changes from kc6 previously documented assessment. Patient and/or family updated on plan of care and expected duration. Pain level reassessed. Patient is alert, oriented x 3, equal unlabored respirations, skin warm/dry/pink. Vital Signs: 15:16 BP 156 / 96; Pulse 83; Resp 15 S; Pulse Ox 98% on R/A; kc6 15:16 BP 156 / 96; Pulse 86; Resp 16; Temp 98.6; Pulse Ox 99% on R/A; Weight 95.25 kg; Height cm10 5 ft. 10 in. ; Pain 0/10; 17:01 BP 158 / 84; Pulse 85; Resp 18 S; Pulse Ox 98% on R/A; Pain 0/10; kc6 18:06 BP 157 / 88; Pulse 85; Resp 18 S; Pulse Ox 99% on R/A; kc6 15:16 Body Mass Index 30.13 (95.25 kg, 177.8 cm) cm10 15:16 Pain Scale: Adult cm10 17:01 Pain Scale: Adult kc6 ED Course: 15:02 Patient arrived in ED. nj1 15:05 Joe Olson MD is Attending Physician. ec2 15:14 Margy Mariscal, TORIBIO is Primary Nurse. kc6 15:15 Patient has correct armband on for positive identification. Placed in gown. Bed in low kc6 position. Call light in reach. Side rails up X2. wheel polisher on. Pulse ox on. NIBP on. Pillow given. 15:16 Arm band placed on. kc6 15:19 Triage completed. cm10 15:21 Initial lab(s) drawn, by me, sent to lab. Inserted saline lock: 18 gauge in right cm10 antecubital area, using aseptic technique. Blood collected. Maintain EMS IV. Dressing intact. Good blood return noted. Site clean \T\ dry. Gauge \T\ site: 18G left AC. 15:59 XRAY Chest (1 view) In Process Unspecified. EDMS 16:19 initiated a transfer with Carissa from the [facility]. eb 16:30 initiated a transfer with Hadley from the [facility]. eb 16:37 per Hadley / Juliano will have to decline the patient in transfer/ they are at eb capacity/. 16:44 connected the vertical contour band saw operator from [facility] with Dr. Olosn for patient transfer eb consultation. 16:51 administrative approval given by Carissa Allen Rn/ patient has been accepted to [facility] 7 A bed 2/ Dr. Webber has accepted the patient in transfer/ report to be called to [phone]. 18:06 No provider procedures requiring assistance completed. Patient transferred, IV remains kc6 in place. Administered Medications: No medications were administered Medication: 15:22 VIS not applicable for this client. cm10 Outcome: 15:59 ER care complete, transfer ordered by . ec2 18:06 Transferred by ground EMS to [facility], Transfer form completed. kc6 18:06 Condition: stable 18:06 Instructed on the need for transfer, 18:07 Patient left the ED. kc6 Signatures: Dispatcher [employer] EDLucille Turpin Kaitlyn RN RN kc6 Ashely Gomes RN RN nj1 Lindsey Schneider RN RN cm10 Joe Olson MD MD ec2 Corrections: (The following items were deleted from the chart) 15:20 15:19 Immunization history: Adult Immunizations cm10 cm10
--- NOTE | 2024-05-17 16:00 | EDPHYS ---
Physician Documentation [facility] Name: Elpidio Sloan Age: 69 yrs Sex: Male : 1955 Arrival Date: 05/17/2024 Time: 15:01 Bed 3 Private MD: ED Physician Joe Olson HPI: 05/17 15:15 This 69 yrs old Male presents to ER via Unassigned with complaints of Syncope. ec2 15:15 Patient arrives today for evaluation due to concern for syncope. Patient had multiple ec2 bouts of syncopal episodes. EMS reports intermittent heart rates in the 30s to 40s. History of hypertension, hyperlipidemia, previous CABG, previous stenting.. Historical: - Allergies: 15:19 Iodine; cm10 15:19 Sulfa (Sulfonamide Antibiotics); cm10 15:19 TETRACYCLINES; cm10 - PMHx: 15:19 CAD; Hyperlipidemia; High Cholesterol; Myocardial infarction; GERD; Diabetes - NIDDM; cm10 Depression; Hypertension; - PSHx: 15:19 Coronary artery bypass graft; Cardiac stents X5; cm10 - Immunization history:: Adult Immunizations up to date. - Infectious Disease History:: Denies. - Social history:: Smoking status: Patient denies any tobacco usage or history of. ROS: 15:15 Constitutional: as per hpi ec2 Exam: 15:15 Constitutional: GEN: NAD Head: atraumatic Eyes: EOMI Ears: External ears are ec2 normal. CV: regular rate LUNGS: no respiratory distress ABD: non-distended SKIN: no evidence of rashes MSK: no evidence of trauma NEURO: moves all extremities equally Vital Signs: 15:16 BP 156 / 96; Pulse 83; Resp 15 S; Pulse Ox 98% on R/A; kc6 15:16 BP 156 / 96; Pulse 86; Resp 16; Temp 98.6; Pulse Ox 99% on R/A; Weight 95.25 kg; Height cm10 5 ft. 10 in. ; Pain 0/10; 17:01 BP 158 / 84; Pulse 85; Resp 18 S; Pulse Ox 98% on R/A; Pain 0/10; kc6 18:06 BP 157 / 88; Pulse 85; Resp 18 S; Pulse Ox 99% on R/A; kc6 15:16 Body Mass Index 30.13 (95.25 kg, 177.8 cm) cm10 15:16 Pain Scale: Adult cm10 17:01 Pain Scale: Adult kc6 MDM: 15:13 Patient medically screened. ec2 15:15 Data reviewed: vital signs. ED course: Patient arrives today for evaluation of syncopal ec2 episodes. Examination remarkable for nontoxic and appears otherwise in no acute distress. My concern is for an arrhythmia given the patient's recurrent episodes and bouts of bradycardia. EKG obtained, independently reviewed and interpreted by me, shows second-degree type I AV block, sinus rhythm, rate of 71, no acute ST segment elevations, nonspecific T wave abnormalities noted. Will obtain cardiac profile, chest x-ray, lab work. Differential diagnosis include process such as arrhythmia, electrolyte disturbances.. 15:59 ED course: Metabolic profile shows appropriate electrolytes, renal dysfunction with ec2 creatinine 1.35, BNP minimally elevated, CBC reassuring, troponin within normal ranges. Chest x-ray independently reviewed and interpreted by me, shows no acute intrathoracic process. . 16:36 ED course: Discussed case with cardiology [facility] who agrees to accept ec2 patient for transfer. Also discussed case with goods layer. 05/17 15:05 Order name: Basic Metabolic Panel; Complete Time: 15:58 ec2 05/17 15:05 Order name: CBC with Diff; Complete Time: 15:58 ec2 05/17 15:05 Order name: NT PRO-BNP; Complete Time: 15:58 ec2 05/17 15:05 Order name: Troponin HS; Complete Time: 15:58 ec2 05/17 15:05 Order name: XRAY Chest (1 view); Complete Time: 16:48 ec2 05/17 15:05 Order name: EKG; Complete Time: 15:05 ec2 05/17 15:05 Order name: Cardiac monitoring; Complete Time: 15:14 ec2 05/17 15:05 Order name: EKG - Nurse/Tech; Complete Time: 15:14 ec2 05/17 15:05 Order name: IV Saline Lock; Complete Time: 15:14 ec2 05/17 15:05 Order name: Labs collected and sent; Complete Time: 15:14 ec2 05/17 15:05 Order name: O2 Per Protocol; Complete Time: 15:14 ec2 05/17 15:05 Order name: O2 Sat Monitoring; Complete Time: 15:14 ec2 05/17 15:09 Order name: Misc. Order: apply pacer pads atropine at bedside; Complete Time: 15:14 ec2 Administered Medications: No medications were administered Disposition Summary: 05/17/24 15:59 Transfer Ordered Notes: Transfer Location: [facility] ec2 Reason: Higher level of care ec2 Condition: Stable ec2 Problem: new ec2 Symptoms: have improved ec2 Accepting Physician: transferring doc(05/17/24 18:07) [email or web address] Diagnosis - Bradycardia, unspecified ec2 Forms: - Medication Reconciliation Form ec2 - SBAR form ec2 Signatures: Dispatcher [employer] Margy Harris RN RN kc6 Lindsey Schneider RN RN cm10 Joe Olson MD MD ec2 Corrections: (The following items were deleted from the chart) 15:15 15:15 Patient arrives today for evaluation due to concern for syncope. Patient had ec2 multiple bouts of syncopal episodes. EMS reports intermittent heart rates in the 30s to 40s.. ec2 15:20 15:19 Immunization history: Adult Immunizations cm10 cm10 18: 15:59 transferring doc ec2 kc6
--- NOTE | 2024-05-17 16:40 | RAD REPORT ---
EXAM DESCRIPTION: Reji Single View05/17/2024 3:57 pm CLINICAL HISTORY: Shortness of breath COMPARISON: none FINDINGS: The lungs appear clear of acute infiltrate. The heart is normal size. Postsurgical change s involve chest IMPRESSION: No acute abnormalities displayed
[2024-05-17 18:22] VITALS: TEMP 98.6
[2024-05-17 18:42] VITALS: BP 157/88; O2SAT 99
--- NOTE | 2024-05-20 12:18 | EKG ---
Test Date: 2024-05-17 Test Time: 15:05:52 House Decorator: KRYSTLE MEASUREMENT RESULTS: Intervals: Rate: 71 [place]: QRSD: 154 QT: 436 QTc: 473 [place]: P: 70 [place]: QRS: -69 T: 79 INTERPRETIVE STATEMENTS: Sinus rhythm with 2nd degree AV block (Mob[place] I) Right bundle branch block Left anterior fascicular block Bifascicular block Left ventricular hypertrophy with repolarization abnormality Abnormal ECG Compared to ECG 11/19/2018 07:53:37 Left anterior fascicular block now present Bifascicular block now present Left ventricular hypertrophy now present Early repolarization now present T-wave abnormality no longer present Possible ischemia no longer present Electronically Signed On 05-20-24 12:12:48 CDT by Dylan Hunt
== END 2024-05-17 18:07 | disposition short-term general hospital (02) ==
LOC: ER 15:01
DX: R00.1 Bradycardia, unspecified (principal); I10 Essential (primary) hypertension; Z95.1 Presence of aortocoronary bypass graft; Z95.818 Presence of other cardiac implants and grafts
CPT/HCPCS: 93005; 85025; 80048; 36415; 84484; 83880; 71045; 99285; J0461

== ENCOUNTER 2025-01-15 01:10 | Inpatient (IN) | payer OTHER ==
[2025-01-15] MEDS ORDERED: ONDANSETRON 4 MG/2 ML VIAL ONE (01:48)
[2025-01-15] MEDS ORDERED: HEPARIN 5000 UNIT/ML 1 ML VIAL ONE (01:48)
[2025-01-15] MEDS ORDERED: NITROGLYCERIN 1 GM PKT TD ONE (01:48)
[2025-01-15] MEDS ORDERED: MORPHINE 4 MG/ML SYR ONE (01:49)
[2025-01-15] MEDS ORDERED: HEPARIN/D5W 25,000 UNIT/500 ML BAG IV ONE (01:55)
[2025-01-15 02:43] LABS: Absolute Basophils 0.1 K/uL (0-0.5); Absolute Eosinophils 0.5 K/uL (0-0.5); Absolute Lymphocytes (CBC) 1.7 K/uL (0.7-4.9); Absolute Monocytes 0.6 K/uL (0.1-1.3); Absolute Neutrophil 3.5 K/uL (1.8-8.0); Basophils % 0.9 % (0-1.3); Eosinophils % 7.5 % (0-4.4); Hematocrit 43.7 % (39.6-49.0); Hemoglobin 14.7 g/dL (13.6-17.9); Lymphocytes % 26.7 % (15.3-44.8); MCH 29.4 pg (27.0-35.0); MCHC 33.6 g/dL (32.0-36.0); MCV 87.5 fL (80-100); MPV 9.9 fL (7.6-11.3); Monocytes % 10.1 % (3.3-12.3); Neutrophils % 54.8 % (41.7-73.7); Platelets 116 thou/uL (152-406); Red Cell Distribution Width 14.5 % (12.1-15.2)
[2025-01-15 02:55] LABS: PT Prothrombin Time 12.6 SECONDS (10.0-13.0); Protime INR 1.11
[2025-01-15 03:06] LABS: Albumin 3.7 g/dL (3.4-5.0); Bilirubin Direct 0.4 mg/dL (0-0.2); Bilirubin Indirect, Calculated 0.8 mg/dL (0.2-0.8); Bilirubin Total 1.2 mg/dL (0.2-1.0); Globulin 3.6 g/dL (2.3-3.5); Magnesium 2.4 mg/dL (1.6-2.4); Protein, Total 7.3 g/dL (6.4-8.2)
[2025-01-15 03:10] LABS: Troponin High Sensitivity 75.6 pg/mL (<58.9)
--- NOTE | 2025-01-15 04:49 | ER ---
Nurse's Notes [facility] Name: Elpidio Sloan Age: 70 yrs Sex: Male : 1955 Arrival Date: 01/15/2025 Time: 01:10 Bed 19 Private MD: Diagnosis: NSTEMI -non-ST elevated [place] Presentation: 01/15 01:21 Chief complaint: Patient states: SOB X 3 DAYS. JAW PAIN. Coronavirus screen: At this j time, the client does not indicate any symptoms associated with coronavirus-19. Ebola Screen: No symptoms or risks identified at this time. Initial Sepsis Screen: Does the patient meet any 2 criteria? No. Patient's initial sepsis screen is negative. Does the patient have a suspected source of infection? No. Patient's initial sepsis screen is negative. Risk Assessment: Do you want to hurt yourself or someone else? Patient reports no desire to harm self or others. Onset of symptoms was January 11, 2025. 01:21 Method Of Arrival: [facility] j 01:21 Acuity: JULIEN 3 jj7 01:21 Care prior to arrival: Medication(s) given: ASA, 81 mg, x 4, IV initiated. 20 GA, in jj7 the right forearm, Oxygen administered. via nasal cannula. Triage Assessment: :29 General: Appears in no apparent distress. comfortable, Behavior is calm, cooperative, jj7 appropriate for age. Pain: Denies pain. Respiratory: Reports shortness of breath at rest air hunger since X3 DAYS Onset: The symptoms/episode began/occurred gradually, the patient has moderate shortness of breath. Historical: - Allergies: : Iodine; jj7 01:29 Sulfa (Sulfonamide Antibiotics); j7 01:29 TETRACYCLINES; jj7 - PMHx: 01:29 CAD; Depression; Diabetes - NIDDM; GERD; High Cholesterol; Hyperlipidemia; j Hypertension; Myocardial infarction; - PSHx: :29 Cardiac Stents X5; 6 STENTS; Coronary artery bypass graft; - Immunization history:: Client reports receiving the 2nd dose of the Covid vaccine. - Infectious Disease History:: Denies. - Family history:: not pertinent. - Social history:: Smoking status: Patient denies any tobacco usage or history of. Screenin:30 [facility] ED Fall Risk Assessment (Adult) History of falling in the last 3 months, ay including since admission No falls in past 3 months (0 pts) Confusion or Disorientation No (0 pts) Intoxicated or Sedated No (0 pts) Impaired Gait No (0 pts) Mobility Assist Device Used No (0 pt) Altered Elimination No (0 pt) Score/Fall Risk Level 0 - 2 = Low Risk Oriented to surroundings, Maintained a safe environment, Educated pt \T\ family on fall prevention, incl call for assistance when getting out of bed. Abuse screen: Denies threats or abuse. Nutritional screening: No deficits noted. Tuberculosis screening: No symptoms or risk factors identified. Assessment: :30 General: Appears in no apparent distress. uncomfortable, Behavior is calm, cooperative. ay Pain: Complains of pain in ches. Neuro: Level of Consciousness is awake, alert, obeys commands, Oriented to person, place, time. Cardiovascular: Rhythm is sinus rhythm. Respiratory: Airway is patent Respiratory effort is even, unlabored, Breath sounds are diminished bilaterally. GI: No signs and/or symptoms were reported involving the gastrointestinal system. : No signs and/or symptoms were reported regarding the genitourinary system. EENT: No signs and/or symptoms were reported regarding the EENT system. Vital Signs: 01:21 BP 175 / 91; Pulse 75; Resp 20; Pulse Ox 98% ; Weight 97.52 kg; Height 5 ft. 10 in. ; jj7 Pain 0/10; 01:24 BP 175 / 91; Pulse 74; Resp 16; Pulse Ox 97% ; ay 01:30 BP 163 / 92; Pulse 65; Resp 19; Pulse Ox 97% on R/A; ay 02:00 BP 154 / 79; Pulse 63; Resp 16; Pulse Ox 97% ; ay 03:00 BP 147 / 73; Pulse 60; Resp 20; Pulse Ox 95% on R/A; ay 04:00 BP 148 / 85; Pulse 60; Resp 17; Pulse Ox 97% ; ay 05:00 BP 174 / 88; Pulse 60; Resp 18; Pulse Ox 98% ; ay 06:00 BP 157 / 89; Pulse 62; Resp 19; Pulse Ox 96% ; ay 07:00 BP 165 / 85; Pulse 67; Resp 15; Pulse Ox 97% on R/A; ay 01:21 Body Mass Index 30.85 (97.52 kg, 177.8 cm) jj7 01:21 Pain Scale: Adult jj7 Stephani Coma Score: 04:39 Eye Response: spontaneous(4). Motor Response: obeys commands(6). Verbal Response: sp4 oriented(5). Total: 15. ED Course: 01:13 Patient arrived in ED. im 01:21 Jamal Kelley MD is Attending Physician. sp4 01:28 Triage completed. jj7 01:29 Arm band placed on right wrist. Patient placed in an exam room, on a stretcher, on jj7 oxygen, on cardiac technician, on pulse oximetry. 01:30 Maintain EMS IV. Dressing intact. Good blood return noted. Site clean \T\ dry. Gauge \T\ ay site: 20. Flushed with 10 mL NS. 01:40 Marvin Benz RN is Primary Nurse. ay 01:54 EKG done, by ED staff, reviewed by Jamal Kelley MD. hw 02:32 XRAY Chest (1 view) In Process Unspecified. EDMS 04:48 Smith Cerrato MD is Hospitalizing Provider. sp4 06:52 Ptt, Activated Sent. ay 06:52 Troponin High Sensitivity Sent. ay 09:12 Inserted saline lock: 22 gauge in right wrist, using aseptic technique. Flushed with 10 em1 mL NS. Administered Medications: 02:25 Drug: morphine IVP or IV 4 mg IVP once over 4 mins Route: IVP; Infused Over: 4 mins; ay Site: right forearm; 07:23 Follow up: Response: No adverse reaction ay 02:30 Drug: HEParin IV 5000 units IV at bolus once {Co-Signature: jj7 (Arvind Thrasher RN).} Route: IV; Rate: bolus; Site: right forearm; 02:30 Drug: Nitroglycerin Transdermal Ointment 2 % 0.5 inches Transdermal once Route: ay Transdermal; Site: anterior chest wall; 02:30 Drug: Ondansetron IVP 4 mg IVP once; over 2 minutes Route: IVP; Site: right forearm; ay 07:23 Follow up: Response: No adverse reaction ay 02:42 Drug: Heparin ([place] Drip) 12 units/kg/[place] - ([place] [address] units, D5W IV 500 ml) IV at ay calculated rate Per protocol; Max initial rate 1000 units/hr {Co-Signature: rimajJennifer (Arvind Thrasher RN).} Route: IV; Rate: calculated rate; Site: right forearm; Outcome: 04:48 Decision to Hospitalize by Provider. sp4 13:54 Admitted to OR accompanied by nurse, via stretcher, with chart, Report called to lovely Juárez RN 13:54 Condition: stable 13:54 Instructed on the need for admit, 13:55 Patient left the ED. tx1 Signatures: Dispatcher [employer] EDPrince Deal emArvind Blancas, RN RN jjJamal Urias MD MD sp4 Anabell Strauss Michelle, RN RN me1 Giovana Tucker Awudu, RN RN ay Arvind Thrasher RN jj7 Corrections: (The following items were deleted from the chart) 03:23 03:23 Nitroglycerin Transdermal Ointment 2 % 0.5 inches Transdermal in anterior chest ay wall ay
--- NOTE | 2025-01-15 04:49 | EDPHYS ---
Physician Documentation [facility] Name: Elpidio Sloan Age: 70 yrs Sex: Male : 1955 Arrival Date: 01/15/2025 Time: 01:10 Bed 19 Private MD: ED Physician Jamal Kelley HPI: 01/15 04:33 This 70 yrs old Male presents to ER via EMS with complaints of Shortness Of sp4 Breath. 04:39 Very pleasant 70-year-old male with history of CABG, 6 stents, coronary artery disease, sp4 diabetes, hyperlipidemia, presents with acute moderate shortness of breath associated with chest pressure and pain in the jaw. Patient's medications include Jardiance 25 mg metformin 500 mg atorvastatin 80 mg fenofibrate 160 mg clopidogrel 75 mg carvedilol 12.5 isosorbide 30 mg, pantoprazole 40 mg ezetimibe 10 mg losartan 100 mg albuterol as needed. 04:39 Patient also has history of pacemaker.. sp4 Historical: - Allergies: 01:29 Iodine; jj7 01:29 Sulfa (Sulfonamide Antibiotics); jj7 01:29 TETRACYCLINES; jj7 - PMHx: 01:29 CAD; Depression; Diabetes - NIDDM; GERD; High Cholesterol; Hyperlipidemia; jj7 Hypertension; Myocardial infarction; - PSHx: 01:29 Cardiac Stents X5; 6 STENTS; Coronary artery bypass graft; jj7 - Immunization history:: Client reports receiving the 2nd dose of the Covid vaccine. - Infectious Disease History:: Denies. - Family history:: not pertinent. - Social history:: Smoking status: Patient denies any tobacco usage or history of. ROS: 04:39 Constitutional: Negative for fever, chills, and weight loss, positive shortness of sp4 breath, positive chest pressure, positive pain in the jaw 04:39 All other systems are negative, Exam: 04:39 Constitutional: This is a well developed, well nourished patient who is awake, alert, sp4 and in no acute distress. Head/Face: Normocephalic, atraumatic. Eyes: Pupils equal round and reactive to light, extra-ocular motions intact. Lids and lashes normal. Conjunctiva and sclera are not injected. Cornea within normal limits. Periorbital areas with no swelling, redness, or edema. ENT: Nares patent. No nasal discharge, no septal abnormalities noted. Tympanic membranes are normal and external auditory canals are clear. Oropharynx with no redness, swelling, or masses, exudates, or evidence of obstruction, uvula midline. Mucous membranes moist. Neck: Trachea midline, no thyromegaly or masses palpated, and no cervical lymphadenopathy. Supple, full range of motion without nuchal rigidity, or vertebral point tenderness. Chest/axilla: Normal chest wall appearance and motion. Nontender with no deformity. No lesions are appreciated. Cardiovascular: Regular rate and rhythm with a normal S1 and S2. No gallops, murmurs, or rubs. Normal PMI, no JVD. No pulse deficits. Respiratory: Lungs have equal breath sounds bilaterally, clear to auscultation and percussion. No rales, rhonchi or wheezes noted. No increased work of breathing, no retractions or nasal flaring. Abdomen/GI: Soft, with normal bowel sounds. No distension or tympany. No guarding or rebound. No evidence of tenderness throughout. Back: No spinal tenderness. No costovertebral tenderness. Skin: Warm, dry with normal turgor. Normal color with no rashes, no lesions, and no evidence of cellulitis. MS/ Extremity: Pulses equal, no cyanosis. Neurovascular intact. Full, normal range of motion. Neuro: Awake and alert, GCS 15, oriented to person, place, time, and situation. Cranial nerves II-XII grossly intact. Motor strength 5/5 in all extremities. Sensory grossly intact. Psych: Awake, alert, with orientation to person, place and time. Behavior, mood, and affect are within normal limits 04:39 ECG was reviewed by the Attending Physician. EKG 0 121 ventricular paced rhythm rate 80 Vital Signs: 01:21 BP 175 / 91; Pulse 75; Resp 20; Pulse Ox 98% ; Weight 97.52 kg; Height 5 ft. 10 in. ; jj7 Pain 0/10; 01:24 BP 175 / 91; Pulse 74; Resp 16; Pulse Ox 97% ; ay 01:30 BP 163 / 92; Pulse 65; Resp 19; Pulse Ox 97% on R/A; ay 02:00 BP 154 / 79; Pulse 63; Resp 16; Pulse Ox 97% ; ay 03:00 BP 147 / 73; Pulse 60; Resp 20; Pulse Ox 95% on R/A; ay 04:00 BP 148 / 85; Pulse 60; Resp 17; Pulse Ox 97% ; ay 05:00 BP 174 / 88; Pulse 60; Resp 18; Pulse Ox 98% ; ay 06:00 BP 157 / 89; Pulse 62; Resp 19; Pulse Ox 96% ; ay 07:00 BP 165 / 85; Pulse 67; Resp 15; Pulse Ox 97% on R/A; ay 01:21 Body Mass Index 30.85 (97.52 kg, 177.8 cm) [facility] 01:21 Pain Scale: Adult j7 Stephani Coma Score: 04:39 Eye Response: spontaneous(4). Motor Response: obeys commands(6). Verbal Response: sp4 oriented(5). Total: 15. MDM: 02:17 Medical Screening Exam initiated sp4 04:44 ED course: EXAM: XR Chest, 1 View CLINICAL HISTORY: The patient is 70 years old and is sp4 Male; CHEST PAIN TECHNIQUE: Frontal view of the chest. COMPARISON: No relevant prior studies available. FINDINGS: Lungs: Unremarkable. No consolidation. Pleural space: Unremarkable. No pneumothorax. Heart: Unremarkable. Mediastinum: Postsurgical changes in the mediastinum. Bones/joints: No acute findings. Tubes, lines and devices: Left-sided pacemaker. IMPRESSION: No acute findings in the chest. Electronically signed by: Roly Ochoa MD 01/15/2025 03:46. 04:47 Differential diagnosis: asthma, Bronchitis CHF exacerbation, Chronic Obstructive sp4 Pulmonary Disease Myocardial Infarction pneumonia. Data reviewed: vital signs, nurses notes, old medical records, lab test result(s), EKG, radiologic studies, plain films. Consideration of Admission/Observation Patient was admitted/placed on observation. Escalation of care including admission/observation considered. Management of patient was discussed with the following: Hospitalist: Blossom PURI. Personal Carer: Noman PURI . ED course: Patient stable for admission for evaluation by cardiology in the morning.. 01/15 01:22 Order name: XRAY Chest (1 view) sp4 01/15 01:22 Order name: Basic Metabolic Panel; Complete Time: 04:32 sp4 01/15 01:22 Order name: CBC with Diff; Complete Time: 04:32 sp4 01/15 01:22 Order name: LFT's; Complete Time: 04:32 sp4 01/15 01:22 Order name: Magnesium; Complete Time: 04:32 sp4 01/15 01:22 Order name: NT PRO-BNP; Complete Time: 04:32 sp4 01/15 01:22 Order name: PT-INR; Complete Time: 04:32 sp4 01/15 01:22 Order name: Troponin HS; Complete Time: 04:32 sp4 01/15 04:32 Order name: Troponin High Sensitivity sp4 01/15 06:29 Order name: Ptt, Activated ay 01/15 07:12 Order name: PTT, Activated Partial Thromb EDMS 01/15 08:16 Order name: Glucose, Ancillary Testing EDMS 01/15 09:21 Order name: Troponin High Sensitivity EDMS 01/15 13:05 Order name: PTT, Activated Partial Thromb EDMS 01/15 04:53 Order name: CONS Physician Consult EDMS 01/15 01:22 Order name: Cardiac monitoring; Complete Time: 01:54 sp4 01/15 01:22 Order name: EKG - Nurse/Tech; Complete Time: 01:54 sp4 01/15 01:22 Order name: IV Saline Lock; Complete Time: 03:25 sp4 01/15 01:22 Order name: Labs collected and sent; Complete Time: 03:25 sp4 01/15 01:22 Order name: O2 Per Protocol; Complete Time: 03:25 sp4 01/15 01:22 Order name: O2 Sat Monitoring; Complete Time: 03:25 sp4 EC:21 Rate is 80 beats/min. Rhythm is regular, Paced. Clinical impression: No evidence of sp4 ischemia. Interpreted by me. Reviewed by me. Administered Medications: 02:25 Drug: morphine IVP or IV 4 mg IVP once over 4 mins Route: IVP; Infused Over: 4 mins; ay Site: right forearm; 07:23 Follow up: Response: No adverse reaction ay 02:30 Drug: HEParin IV 5000 units IV at bolus once {Co-Signature: jj7 (Arvind Thrasher RN).} Route: IV; Rate: bolus; Site: right forearm; 02:30 Drug: Nitroglycerin Transdermal Ointment 2 % 0.5 inches Transdermal once Route: ay Transdermal; Site: anterior chest wall; 02:30 Drug: Ondansetron IVP 4 mg IVP once; over 2 minutes Route: IVP; Site: right forearm; ay 07:23 Follow up: Response: No adverse reaction ay 02:42 Drug: Heparin ([place] Drip) 12 units/kg/[place] - ([place] [address] units, D5W IV 500 ml) IV at ay calculated rate Per protocol; Max initial rate 1000 units/hr {Co-Signature: jj7 (Arvind Thrasher RN).} Route: IV; Rate: calculated rate; Site: right forearm; Disposition Summary: 01/15/25 04:48 Hospitalization Ordered Notes: Hospitalization Status: Inpatient Admission sp4 Provider: Smith Cerrato sp4 Condition: Stable sp4 Problem: new sp4 Symptoms: have improved sp4 Bed/Room Type: Standard sp4 Location: [facility] [place] ER HOLD(01/15/25 04:49) Room Assignment: ERHOLD-(01/15/25 04:49) vk Diagnosis - NSTEMI -non-ST elevated [place] sp4 Forms: - Medication Reconciliation Form sp4 - SBAR form sp4 - Leadership Thank You Letter sp4 Signatures: Dispatcher [employer] Arvind Eric RN RN jj7 Jamal Kelley MD MD sp4 Neli Bynum Awudu RN Arvind Stein RN jj7 Corrections: (The following items were deleted from the chart) 01:56 01:56 BASIC METABOLIC PANEL+C.LAB.BRZ ordered. EDMS EDMS 01:56 01:56 CBC+H.LAB.BRZ ordered. EDMS EDMS 01:56 01:56 HEPATIC FUNCTION+C.LAB.BRZ ordered. EDMS EDMS 01:56 01:56 MAGNESIUM+C.LAB.BRZ ordered. EDMS EDMS 01:56 01:56 PROBNP+C.LAB.BRZ ordered. EDMS EDMS 01:56 01:56 PROTIME (+INR)+COAG.LAB.BRZ ordered. EDMS EDMS 01:56 01:56 Troponin High Sensitivity+C.LAB.BRZ ordered. EDMS EDMS 01:57 01:56 Chest Single View+RAD.RAD.BRZ ordered. EDMS EDMS 04:33 04:33 Troponin High Sensitivity+C.LAB.BRZ ordered. EDMS EDMS 04:49 04:48 Telemetry/MedSurg (Inpatient) sp4 vk 04:49 04:48 sp4 vk 11:56 11:56 PTT, ACTIVATED+COAG.LAB.TIFFANY ordered. EDMS EDMS
--- NOTE | 2025-01-15 05:49 | RAD REPORT ---
EXAM: XR Chest, 1 View CLINICAL HISTORY: The patient is 70 years old and is Male; CHEST PAIN TECHNIQUE: Frontal view of the chest. COMPARISON: No relevant prior studies available. FINDINGS: Lungs: Unremarkable. No consolidation. Pleural space: Unremarkable. No pneumothorax. Heart: Unremarkable. Mediastinum: Postsurgical changes in the mediastinum. Bones/joints: No acute findings. Tubes, lines and devices: Left-sided pacemaker. IMPRESSION: No acute findings in the chest. Electronically signed by: Roly Ochoa MD 01/15/2025 03:46 AM [facility] 8 Due to temporary technical issues with the PACS/[employer] reporting system, reports are being keerthi d by the in-house radiologist without review as a courtesy to ensure prompt reporting the interpreting radiologist is fully responsible for the content of the report. Transcribed Date/Time: 01/15/2025 5:49 AM
[2025-01-15] MEDS: HEPARIN/D5W 25,000 UNIT/500 ML BAG IV SCH (07:00)
[2025-01-15] MEDS ORDERED: ALBUTEROL 2.5 MG/3 ML NEB SOL NEB PRN ×2 (07:46→16:58)
[2025-01-15] MEDS: D5 0.45 NS 1,000 ML IV SCH (07:46)
[2025-01-15] MEDS ORDERED: GLUCAGON 1 MG/VIAL IM PRN (07:46)
[2025-01-15] MEDS ORDERED: ACETAMINOPHEN 325 MG TABLET PO PRN (07:46)
[2025-01-15] MEDS ORDERED: D10W 125 ML IV PRN (07:46)
[2025-01-15 08:26] VITALS: BMI 30.8
[2025-01-15] MEDS ORDERED: FUROSEMIDE 20 MG/ 2ML VIAL ONE ×2 (08:56→14:27)
[2025-01-15] MEDS ORDERED: D5 0.45 NS 1,000 ML IV ONE (08:57)
[2025-01-15] MEDS: FUROSEMIDE 20 MG/ 2ML VIAL IV ONE (09:00)
--- NOTE | 2025-01-15 12:56 | P.HP ---
Patient History Date of Service: 01/15/25 Reason for admission: CHEST PAIN, DYSPNEA History of Present Illness: RACHEL IS A70 YRS OLD DIABETIC WHO HAD NORMAL STRESS TEST IN AND COMES WITH DYSPNEA, JAW PAIN AND CHEST HEAVINESS OVERNIGHT. HE HAS MILD ELEVATED TROP ENZYMES UP TO 100. HE IS STABLE BUT STILL HAS DYSPNEA AND HE CAN'T LAY DOWN. Allergies codeine [Codeine] Allergy (Intermediate, Verified 11/18/18 06:12) ITCH, VOMIT Sulfa (Sulfonamide Antibiotics) [Sulfa(Sulfonamide Antibiotics)] Allergy (Intermediate, Verified 11/18/18 06:12) ITCH iodine [Iodine] Adverse Reaction (Severe, Verified 11/18/18 06:12) Anaphylaxis Tetracyclines Adverse Reaction (Verified 11/18/18 06:12) Hives Home Medications: Atorvastatin Calcium [Lipitor] 80 mg PO DAILY 11/18/18 Empagliflozin/Metformin HCl [Synjardy Xr 25-1,000 mg Tablet] 1 each PO DAILY 11/18/18 Fenofibrate [Tricor*] 145 mg PO DAILY 11/18/18 Glimepiride 4 mg PO BID 11/18/18 Isosorbide Mononitrate [Isosorbide Mononitrate ER] 30 mg PO DAILY 11/18/18 Lansoprazole 30 mg PO DAILY 11/18/18 Prasugrel HCl [Effient] 10 mg PO DAILY 11/18/18 Quetiapine [Seroquel*] 25 mg PO BEDTIME PRN 11/18/18 Quinapril HCl 10 mg PO DAILY 11/18/18 Venlafaxine HCl [Venlafaxine HCl ER] 75 mg PO DAILY 11/18/18 atenoloL [Atenolol] 50 mg PO BID 11/18/18 Pantoprazole [Protonix Tab] 30 mg PO DAILY #30 tab 11/19/18 - Past Medical/Surgical History Diabetic: Yes -: dm -: heart attack -: cad -: gerd -: htn -: heart stent (5x) -: bypass LAD graft -: partial knee sx (left) - Family History Father -: Heart disease Mother -: Diabetes - Social History Smoking Status: Never smoker Alcohol use: Yes CD- Drugs: No Caffeine use: Yes Review of Systems 10-point ROS is otherwise unremarkable General: Weakness Respiratory: Shortness of Breath Physical Examination - Vital Signs Blood Pressure: 143/87 Pulse: 61 Respirations: 15 Pulse Ox (%): 99 - Physical Exam General: Mild distress HEENT: Atraumatic, PERRLA, Mucous membr. moist/pink, EOMI, Sclerae nonicteric Neck: Supple, 2+ carotid pulse no bruit, No LAD, Without JVD or thyroid abnormality Respiratory: Clear to auscultation bilaterally, Normal air movement Cardiovascular: Regular rate/rhythm, Normal S1 S2 Gastrointestinal: Normal bowel sounds, No tenderness Musculoskeletal: No tenderness Integumentary: No rashes Neurological: Normal gait, Normal speech, Normal strength at 5/5 x4 extr, Normal tone, Normal affect Lymphatics: No axilla or inguinal lymphadenopathy - Studies Laboratory Data (last 24 hrs) 01/15/25 01/15/25 01/15/25 02:15 02:15 02:15 WBC 6.30 Hgb 14.7 Hct 43.7 Plt Count 116 L PT 12.6 H INR 1.11 Sodium 139 Potassium 4.0 BUN 24 H Creatinine 0.99 Glucose 207 H Magnesium 2.4 Total Bilirubin 1.2 H AST 28 ALT 44 Alkaline Phosphatase 65 Assessment and Plan - Problems (Diagnosis) (1) Subendocardial NE first episode care Current Visit: No Status: Acute Plan: I CALLED DR ANDERS AND HE WILL SEE PATIENT AT LUNCH TIME. HE WILL BE NPO IN CASE IF HE DOSE CC ON HIM. PATIENT IS KNOWN CORONARY PATIENT WITH HISTORY OF STENT AND HIGH RISK. (2) Diabetes Onset Date: 11/19/18 Current Visit: No Status: Chronic Plan: A1C IS IN 8 REGION AND DIET IS NOT THE BEST. FOLLOWING ARE HIS MEDICAL ISSUES AND MEDS. 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 SYNCOPE 4 TIMES AT HOME. BRADYCARDIA. SYNCOPE 4 TIMES AT HOME. History PMH: HEP C NEG. add past history item PSH: CABG KNEE, ING HERNIA PTCA FOR CAD. CARD.LJ PACEMAKER DR. MART[facility]NEZ. [facility]. 2023. add surgical history item FH: add relationship to patient HTN add family history item SH: add special add social history item Cogn: add special add cognitive status Func: add special add functional status Psych: add special add psychological status Habits: add special Smoking: Never smoker (as of: 02/28/2018) add habits history item Diet: add diet history item Exc: add special add exercise history item Permanent Rx Meds Albuterol Sulfate HFA 108 (90 Base) MCG/ACT Aerosol Solution Inhalation 1 puff inhaled orally every 4 hours as needed amLODIPine Besylate 2.5 mg Tab ONE PO DAILY 304 Atorvastatin Calcium 80 mg Tab ONE PO DAILY 410 Carvedilol 6.25 mg Tab ONE PO BID WITH MEALS 505 Ezetimibe 10 mg Tab Take 1 tablet by mouth once daily 610 Famotidine 20 mg Tab TAKE 1 TABLET BY MOUTH TWICE A DAY BEFORE MEALS 7012/2019 Fenofibrate 160 mg Tab TAKE 1 TABLET BY MOUTH EVERY DAY 8111/2022 hydrOXYzine 25 mg Tab TAKE 1 TABLET BY MOUTH TWICE A DAY NEEDED Isosorbide Mononitrate ER 30 mg Tab ER 24hr ONE PO DAILY 10003/2023 Jardiance 25 mg Tab ONE PO DA[place] AM 11012/2023 Levothyroxine Sodium 25 MCG Tab TAKE 1 TABLET BY MOUTH EVERY DAY IN THE MORNING ON EMPTY STOMACH 12002/2021 Losartan Potassium 100 mg Tab TAKE 1 TABLET BY MOUTH EVERY DAY 13003/2020 MAGnesium-Oxide 400 (241.3 mg) MG Tab TAKE 1 TABLET BY MOUTH TWICE A DAY 14005/2018 metFORMIN ER 500 mg Tab ER 24hr TAKE 2 TABLETS BY MOUTH TWICE A DAY AFTER MEALS STOP SYNJARDI Plavix 75 mg Tab ONE PO DAILY - Advance Directives Does patient have a Living Will: No Does patient have a Durable POA for Healthcare: No
[2025-01-15] MEDS ORDERED: HEPARIN 10,000 UNIT/10 ML VIAL IV ONE ×2 (13:32→15:02)
[2025-01-15] MEDS ORDERED: HEPA 1000U/500MLS 2,000 UNIT/1,000 ML BAG IV ONE (13:32)
[2025-01-15] MEDS ORDERED: LIDOCAINE 1% 20 ML MDV ONE (13:32)
[2025-01-15] MEDS ORDERED: VERAPAMIL HCL 10 MG/4 ML VIAL IV ONE (13:32)
[2025-01-15] MEDS ORDERED: MIDAZOLAM HCL 2 MG/2 ML INJ ONE (13:32)
[2025-01-15] MEDS ORDERED: ATROPINE SULF 1 MG/10 ML SYR IV ONE (13:32)
[2025-01-15] MEDS ORDERED: FENTANYL CITR 100 MCG/2 ML ONE (13:33)
[2025-01-15] MEDS ORDERED: ASPIRIN 325 MG TAB ONE (13:33)
[2025-01-15] MEDS ORDERED: CLOPIDOGREL 75 MG TABLET ONE (13:33)
[2025-01-15] MEDS ORDERED: TICAGRELOR 90 MG TABLET PO ONE (13:33)
[2025-01-15] MEDS ORDERED: NA CHLORIDE 0.9% 500 ML ONE (14:13)
[2025-01-15] MEDS ORDERED: DIPHENHYDRAMINE 50 MG/ML VIAL ONE (14:44)
[2025-01-15] MEDS ORDERED: METHYLPREDNISOLONE 125 MG INJ ONE (14:44)
[2025-01-15] MEDS ORDERED: HYDRALAZINE HCL 20 MG/ML VIAL ONE (16:05)
[2025-01-15 17:06] VITALS: O2SAT 99
[2025-01-15] MEDS: MORPHINE 4 MG/ML SYR IV PRN (18:13)
[2025-01-15] MEDS: ONDANSETRON 4 MG/2 ML VIAL IV PRN (18:13)
[2025-01-15] MEDS: TICAGRELOR 90 MG TABLET PO SCH (20:49)
[2025-01-16] MEDS: HYDRALAZINE HCL 20 MG/ML VIAL IV ONE (01:14)
[2025-01-16 05:38] LABS: Anion Gap 14.5 mEq/L (5.0-15.0); Potassium 4.5 mEq/L (3.5-5.1)
--- NOTE | 2025-01-16 07:57 | P.DS ---
Admission Date: 01/15/25 Discharge Date: 01/16/25 Disposition: ROUTINE DISCHARGE Discharge Condition: FAIR Reason for Admission: CHEST PAIN, DYSPNEA - Problems (1) Subendocardial NH first episode care Current Visit: No Status: Acute (2) Diabetes Onset Date: 11/19/18 Current Visit: No Status: Chronic Brief History of Present Illness: RACHEL IS A70 YRS OLD DIABETIC WHO HAD NORMAL STRESS TEST IN AND COMES WITH DYSPNEA, JAW PAIN AND CHEST HEAVINESS OVERNIGHT. HE HAS MILD ELEVATED TROP ENZYMES UP TO 100. HE IS STABLE BUT STILL HAS DYSPNEA AND HE CAN'T LAY DOWN. Hospital Course: RACHEL HAS DM, WITH HTN AND CAD WITH HISTORY OF STENT. HE COMES WITH UNSTABLE ANGINA. HE HAD TWO STENOSIS WITH SEVERE CALCIFICATION. DR. ANDERS COULD OPEN ONE UP WITH TWO HOURS OF WORK. OTHER ONE WILL NEED LASER. HE WILL GO HOME ON BRILLINTA AND FU IN OFFICE IN ONE WEEK. Vital Signs/Physical Exam: Temp Pulse Resp BP Pulse Ox 97.6 F 60 16 153/75 H 100 01/16/25 04:00 01/16/25 04:00 01/16/25 04:00 01/16/25 04:00 01/16/25 04:00 Laboratory Data at Discharge: WBC 6.30 thou/uL (4.3-10.9) 01/15/25 02:15 Hgb 14.7 g/dL (13.6-17.9) 01/15/25 02:15 Hct 43.7 % (39.6-49.0) 01/15/25 02:15 Plt Count 116 thou/uL (152-406) L 01/15/25 02:15 PT 12.6 SECONDS (10.0-13.0) H 01/15/25 02:15 INR 1.11 01/15/25 02:15 APTT 46.0 SECONDS (24.3-36.9) H 01/15/25 12:09 Sodium 140 mEq/L (136-145) 01/16/25 04:03 Potassium 4.5 mEq/L (3.5-5.1) 01/16/25 04:03 BUN 22 mg/dL (7-18) H 01/16/25 04:03 Creatinine 1.20 mg/dL (0.70-1.30) 01/16/25 04:03 Glucose 254 mg/dL (74-106) H 01/16/25 04:03 Magnesium 2.4 mg/dL (1.6-2.4) 01/15/25 02:15 Total Bilirubin 1.2 mg/dL (0.2-1.0) H 01/15/25 02:15 AST 28 U/L (15-37) 01/15/25 02:15 ALT 44 U/L (16-61) 01/15/25 02:15 Alkaline Phosphatase 65 U/L (45-117) 01/15/25 02:15 Home Medications: Atorvastatin Calcium [Lipitor] 80 mg PO DAILY 11/18/18 Empagliflozin/Metformin HCl [Synjardy Xr 25-1,000 mg Tablet] 1 each PO DAILY 11/18/18 Fenofibrate [Tricor*] 145 mg PO DAILY 11/18/18 Glimepiride 4 mg PO BID 11/18/18 Isosorbide Mononitrate [Isosorbide Mononitrate ER] 30 mg PO DAILY 11/18/18 Lansoprazole 30 mg PO DAILY 11/18/18 Quetiapine [Seroquel*] 25 mg PO BEDTIME PRN 11/18/18 Quinapril HCl 10 mg PO DAILY 11/18/18 Venlafaxine HCl [Venlafaxine HCl ER] 75 mg PO DAILY 11/18/18 atenoloL [Atenolol] 50 mg PO BID 11/18/18 Aspirin Chewable [Aspirin Chewable*] 81 mg PO DAILY tab.chew 01/16/25 Ticagrelor [Brilinta*] 90 mg PO BID #60 01/16/25 New Medications: Ticagrelor [Brilinta*] 90 mg PO BID #60 Followup: Smith Cerrato MD [Primary Care Provider] -
[2025-01-16] MEDS: ASPIRIN 81 MG CHEWABLE TABLET PO SCH (09:00)
[2025-01-16 12:16] VITALS: BP 133/87; TEMP 97.9
== END 2025-01-16 14:52 | disposition home or self-care (01) | DRG 322 ==
LOC: ER 01:10 → ERHOLD 04:50 → 2ND 19:35
PROVIDERS: ADMIT Internal Medicine; ATTEND Internal Medicine
PROC: 027035Z Dilation of Coronary Artery, One Artery with Two Drug-eluting Intraluminal Devices, Percutaneous Approach (ICD-10-PCS; principal; 2025-01-15)
PROC: 4A023N7 Measurement of Cardiac Sampling and Pressure, Left Heart, Percutaneous Approach (ICD-10-PCS; 2025-01-15)
PROC: B2111ZZ Fluoroscopy of Multiple Coronary Arteries using Low Osmolar Contrast (ICD-10-PCS; 2025-01-15)
DX: I25.110 Atherosclerotic heart disease of native coronary artery with unstable angina pectoris (principal); E11.9 Type 2 diabetes mellitus without complications; K21.9 Gastro-esophageal reflux disease without esophagitis; E78.00 Pure hypercholesterolemia, unspecified; I10 Essential (primary) hypertension; G47.33 Obstructive sleep apnea (adult) (pediatric); F31.9 Bipolar disorder, unspecified; I25.2 Old myocardial infarction; Z88.2 Allergy status to sulfonamides; Z88.1 Allergy status to other antibiotic agents; Z95.5 Presence of coronary angioplasty implant and graft; Z95.1 Presence of aortocoronary bypass graft; Z88.5 Allergy status to narcotic agent; Z79.82 Long term (current) use of aspirin; Z79.84 Long term (current) use of oral hypoglycemic drugs; Z79.899 Other long term (current) drug therapy
CPT/HCPCS: 36415; 71045; 76937; 80048; 80076; 82947; 83735; 83880; 84484; 85025; 85347; 85610; 85730; 93458; 96374; 96375; 99152; 99153; 99285; C1725; C1760; C1893; C9600; G0269; J0360; J0461; J1200; J1644; J1940; J2003; J2250; J2405; J2919; J3010; J7040; J7060; J7799; Q9967

== ENCOUNTER 2025-01-21 00:03 | Observation (INO) | payer OTHER ==
[~2025-01-21 00:03] MED LIST: MORPHINE 4 MG/ML SYR ONE; ONDANSETRON 4 MG/2 ML VIAL ONE
[2025-01-21] MEDS ORDERED: ONDANSETRON 4 MG/2 ML VIAL ONE (01:14)
[2025-01-21] MEDS ORDERED: MORPHINE 4 MG/ML SYR ONE ×2 (01:16→04:36)
[2025-01-21] MEDS ORDERED: FAMOTIDINE 20 MG/2 ML VIAL IV ONE (01:18)
[2025-01-21 01:59] LABS: Absolute Basophils 0.1 K/uL (0-0.5); Absolute Eosinophils 0.3 K/uL (0-0.5); Absolute Lymphocytes (CBC) 1.5 K/uL (0.7-4.9); Absolute Monocytes 0.4 K/uL (0.1-1.3); Absolute Neutrophil 6.3 K/uL (1.8-8.0); Basophils % 0.9 % (0-1.3); Eosinophils % 3.3 % (0-4.4); Hemoglobin 14.8 g/dL (13.6-17.9); Lymphocytes % 17.4 % (15.3-44.8); MCH 29.4 pg (27.0-35.0); MCHC 33.6 g/dL (32.0-36.0); MCV 87.3 fL (80-100); MPV 9.8 fL (7.6-11.3); Monocytes % 5.1 % (3.3-12.3); Neutrophils % 73.3 % (41.7-73.7); Platelets 131 thou/uL (152-406); Protime INR 1.06; RBC Red Blood Cell Count 5.03 M/uL (4.33-5.43); Red Cell Distribution Width 14.5 % (12.1-15.2)
[2025-01-21 02:12] LABS: Albumin 3.9 g/dL (3.4-5.0); Albumin/Globulin Ratio 1.1 (1.1-1.8); Anion Gap 10.2 mEq/L (5.0-15.0); Bilirubin Direct 0.3 mg/dL (0-0.2); Bilirubin Indirect, Calculated 0.5 mg/dL (0.2-0.8); Bilirubin Total 0.8 mg/dL (0.2-1.0); Globulin 3.4 g/dL (2.3-3.5); Potassium 4.2 mEq/L (3.5-5.1); Protein, Total 7.3 g/dL (6.4-8.2)
[2025-01-21 02:18] LABS: Troponin High Sensitivity 274.5 pg/mL (<58.9)
[2025-01-21] MEDS ORDERED: METOCLOPRAMIDE 10 MG/2mL INJ ONE (04:35)
[2025-01-21] MEDS ORDERED: ENOXAPARIN 100 MG/ML SYR SQ ONE (04:35)
--- NOTE | 2025-01-21 05:02 | RAD REPORT ---
PROCEDURE: XR Chest, 1 View CLINICAL INDICATION: The patient is 70 years old and is Male; Chest pain. TECHNIQUE: Frontal view of the chest. COMPARISON: XR Chest 01/15/2025. FINDINGS: LUNGS: No discrete focal consolidation. PLEURAL SPACE: No appreciable pleural effusion or pneumothorax. MEDIASTINUM: Stable cardiomediastinal silhouette. CABG. BONES/JOINTS: Median sternotomy. TUBES, LINES AND DEVICES: Cardiac stimulator device demonstrated over the left chest with leads ter minating over the right atria and right ventricle. IMPRESSION: No acute findings in the chest. Electronically signed by: Trevor Almaraz MD 01/21/2025 01:11 AM CDT RP Due to temporary technical issues with the PACS/GoCardless reporting system, reports are being keerthi d by the in-house radiologist without review as a courtesy to ensure prompt reporting the interpreting radiologist is fully responsible for the content of the report. Transcribed Date/Time: 01/21/2025 5:02 AM
--- NOTE | 2025-01-21 05:44 | EDPHYS ---
Physician Documentation [facility] Name: Elpidio Sloan Age: 70 yrs Sex: Male : 1955 Arrival Date: 01/21/2025 Time: 00:03 Bed 16 Private MD: ED Physician Jamal Kelley HPI: 01/21 00:04 This 70 yrs old Male presents to ER via Unassigned with complaints of Chest sp4 Pain. 05:29 70-year-old male presents with midsternal burning chest pain. Starting acutely today. sp4 Patient was admitted 01/15/2025 for NSTEMI. Patient apparently received 1 stent,. Patient had angiography with signs of 2 significant arterial stenosis with calcifications. Patient received 1 stent. That area could not be stented. Patient was discharged home with Brilinta and advised to follow-up with cardiology in 1 week. Patient states he cannot afford Brilinta so he takes Plavix 75 mg daily and also he takes 81 mg aspirin p.o. other medications include atorvastatin 80 mg daily, Synjardy 1 p.o. daily, fenofibrate 145 mg p.o. daily, glimepiride 4 mg p.o. twice daily, isosorbide 30 mg daily, lansoprazole 30 mg daily, quetiapine 25 mg bedtime, quinapril 10 mg daily, venlafaxine 75 mg daily, atenolol 50 mg twice daily, and was prescribed Brilinta 90 mg p.o. twice daily. Primary physician Dr. Cerrato. Historical: - Allergies: 00:10 Iodine; ha1 00:10 Sulfa (Sulfonamide Antibiotics); ha1 00:10 TETRACYCLINES; ha1 - Home Meds: 00:10 Lipitor 80 mg Oral tab 1 tab once daily [Active]; ha1 - PMHx: 00:10 CAD; Depression; Diabetes - NIDDM; GERD; High Cholesterol; Hyperlipidemia; ha1 Hypertension; Myocardial infarction; - PSHx: 00:10 Cardiac Stents X5; 6 STENTS; Coronary artery bypass graft; ha1 - Immunization history:: Adult Immunizations up to date. - Infectious Disease History:: Denies. - Social history:: Smoking status: unknown. - Family history:: not pertinent. ROS: 05:29 Constitutional: Negative for fever, chills, and weight loss, positive midsternal chest sp4 pain 05:29 All other systems are negative, Exam: 05:29 Constitutional: This is a well developed, well nourished patient who is awake, alert, sp4 and in no acute distress. Head/Face: Normocephalic, atraumatic. Eyes: Pupils equal round and reactive to light, extra-ocular motions intact. Lids and lashes normal. Conjunctiva and sclera are not injected. Cornea within normal limits. Periorbital areas with no swelling, redness, or edema. ENT: Nares patent. No nasal discharge, no septal abnormalities noted. Tympanic membranes are normal and external auditory canals are clear. Oropharynx with no redness, swelling, or masses, exudates, or evidence of obstruction, uvula midline. Mucous membranes moist. Neck: Trachea midline, no thyromegaly or masses palpated, and no cervical lymphadenopathy. Supple, full range of motion without nuchal rigidity, or vertebral point tenderness. Chest/axilla: Normal chest wall appearance and motion. Nontender with no deformity. No lesions are appreciated. Cardiovascular: Regular rate and rhythm with a normal S1 and S2. No gallops, murmurs, or rubs. Normal PMI, no JVD. No pulse deficits. Left chest wall pacemaker present. Respiratory: Lungs have equal breath sounds bilaterally, clear to auscultation and percussion. No rales, rhonchi or wheezes noted. No increased work of breathing, no retractions or nasal flaring. Abdomen/GI: Soft, with normal bowel sounds. No distension or tympany. No guarding or rebound. No evidence of tenderness throughout. Back: No spinal tenderness. No costovertebral tenderness. Skin: Warm, dry with normal turgor. Normal color with no rashes, no lesions, and no evidence of cellulitis. MS/ Extremity: Pulses equal, no cyanosis. Neurovascular intact. Full, normal range of motion. Neuro: Awake and alert, GCS 15, oriented to person, place, time, and situation. Cranial nerves II-XII grossly intact. Motor strength 5/5 in all extremities. Sensory grossly intact. Psych: Awake, alert, with orientation to person, place and time. Behavior, mood, and affect are within normal limits 05:29 ECG was reviewed by the Attending Physician. EKG 0011 electronic ventricular pacemaker rate 61 Vital Signs: 00:10 BP 169 / 79; Pulse 60; Resp 15 S; Temp 97; Pulse Ox 98% on R/A; Weight 95.25 kg; Height ha1 5 ft. 10 in. ; 00:52 BP 162 / 93; Pulse 68; Temp 97.7; Pulse Ox 100% on R/A; Weight 92.99 kg (R); Height 5 sa1 ft. 10 in. (R); 01:27 BP 160 / 69; Pulse 60; Resp 17; Pulse Ox 100% on R/A; Pain 6/10; rg5 02:37 BP 145 / 75; Pulse 60; Resp 17; Pulse Ox 97% on R/A; Pain 6/10; rg5 03:35 BP 140 / 70; Pulse 60; Resp 17; Pulse Ox 98% on R/A; Pain 5/10; rg5 04:25 BP 150 / 79; Pulse 61; Pulse Ox 99% on R/A; Pain 5/10; rg5 05:15 BP 148 / 74; Pulse 60; Resp 17; Pulse Ox 97% on R/A; Pain 5/10; rg5 07:18 BP 139 / 72; Pulse 60; Resp 17; Pulse Ox 97% on R/A; ll1 00:52 Body Mass Index 29.41 (92.99 kg, 177.8 cm) sa1 01:27 Pain Scale: Adult rg5 02:37 Pain Scale: Adult rg5 03:35 Pain Scale: Adult rg5 04:25 Pain Scale: Adult rg5 05:15 Pain Scale: Adult rg5 Stephani Coma Score: 05:29 Eye Response: spontaneous(4). Motor Response: obeys commands(6). Verbal Response: sp4 oriented(5). Total: 15. MDM: 03:57 Medical Screening Exam initiated sp4 05:44 Differential diagnosis: acute myocardial infarction, acute pericarditis, anxiety, sp4 coronary artery disease chest wall pain, congestive heart failure esophagitis, gastritis. Data reviewed: vital signs, nurses notes, lab test result(s), EKG, radiologic studies, plain films. ED course: PROCEDURE: XR Chest, 1 View CLINICAL INDICATION: The patient is 70 years old and is Male; Chest pain. TECHNIQUE: Frontal view of the chest. COMPARISON: XR Chest 01/15/2025. FINDINGS: LUNGS: No discrete focal consolidation. PLEURAL SPACE: No appreciable pleural effusion or pneumothorax. MEDIASTINUM: Stable cardiomediastinal silhouette. CABG. BONES/JOINTS: Median sternotomy. TUBES, LINES AND DEVICES: Cardiac stimulator device demonstrated over the left chest with leads terminating over the right atria and right ventricle. IMPRESSION: No acute findings in the chest. Electronically signed by: Trevor Almaraz MD 01/21/2025 01:11 AM. 06:10 HEART Score: History: Highly Suspicious (2), ECG: Non specific repolarization sp4 disturbance / LBTB / PM (1), Age: > or = 65 years (2), Risk Factors: > or = 3 Risk factors for atherosclerotic disease (2), Troponin: > or = 3 x Normal Limit (2), Total Score = 9. The patient was not given aspirin in the Emergency Department. Patient reports taking aspirin within the past 24 hours. Data reviewed: old medical records. ED course: Patient was discussed with mold stamper and repairer at [facility] and accepted for transfer. Acceptance time 0 6:11 AM. 06:30 The patient was given aspirin in the Emergency Department. sp01/21 00:04 Order name: Basic Metabolic Panel; Complete Time: 04:20 sp4 01/21 00:04 Order name: CBC with Diff; Complete Time: 04:20 4 01/21 00:04 Order name: LFT's; Complete Time: 04:20 sp01/21 00:04 Order name: Magnesium; Complete Time: 04:20 sp4 01/21 00:04 Order name: NT PRO-BNP; Complete Time: 04:20 sp4 01/21 00:04 Order name: PT-INR; Complete Time: 04:20 4 01/21 00:04 Order name: Troponin HS; Complete Time: 04:20 sp4 01/21 04:32 Order name: Troponin High Sensitivity; Complete Time: 05:35 sp4 01/21 00:04 Order name: XRAY Chest (1 view); Complete Time: 05:35 4 01/21 04:25 Order name: CONS Physician Consult EDMS 01/21 00:04 Order name: Cardiac monitoring; Complete Time: 01:27 sp4 01/21 00:04 Order name: EKG - Nurse/Tech; Complete Time: 00:20 sp4 01/21 00:04 Order name: IV Saline Lock; Complete Time: sp4 01/21 00:04 Order name: Labs collected and sent; Complete Time: sp4 01/21 00:04 Order name: O2 Per Protocol; Complete Time: sp4 01/21 00:04 Order name: O2 Sat Monitoring; Complete Time: sp4 01/21 06:10 Order name: NPO; Complete Time: 06:11 sp4 EC:11 Rate is 61 beats/min. Rhythm is regular, Paced. No ST changes noted. Clinical sp4 impression: No evidence of ischemia. Interpreted by me. Reviewed by me. Administered Medications: 01:26 Drug: morphine IVP or IV 6 mg IVP once over 4 mins Route: IVP; Infused Over: 4 mins; rg5 Site: left wrist; 03:45 Follow up: Response: No adverse reaction; Pain is decreased rg5 01:26 Drug: Ondansetron IVP 4 mg IVP once; over 2 minutes Route: IVP; Site: left wrist; rg5 03:44 Follow up: Response: No adverse reaction rg5 01:26 Drug: Famotidine IVP 20 mg IVP once; dilute with 10 mL 0.9% NaCl; give over 2 minutes rg5 Route: IVP; Site: left wrist; 03:44 Follow up: Response: No adverse reaction rg5 04:45 Drug: morphine IVP or IV 4 mg IVP once over 4 mins Route: IVP; Infused Over: 4 mins; rg5 Site: left wrist; 05:57 Follow up: Response: No adverse reaction; Pain is decreased rg5 04:45 Drug: metoCLOPramide IVP 10 mg IVP once; over 1 to 2 minutes Route: IVP; Site: left rg5 wrist; 05:57 Follow up: Response: No adverse reaction; Pain is decreased rg5 04:45 Drug: Enoxaparin Sub-Q 90 mg Sub-Q once Route: Sub-Q; Site: left lower abdomen; rg5 05:57 Follow up: Response: No adverse reaction; Pain is decreased rg5 06:29 CANCELLED (Physician Discretion): Heparin ([place]-Bolus No thrombolytic) - [id number] sp4 units/kg IVP once; Max 5000 units 06:37 Not Given (Patient Refused; patient takes 4 aspirin last night \T\ 2230): aspirinchewable rg5 tablet 324 mg PO once; 81 mg tablets x 4 Disposition: 05:48 Critical Care:. sp4 Disposition Summary: 01/21/25 05:44 Transfer Ordered Notes: Transfer Location: [facility] sp4 Reason: Higher level of care sp4 Condition: Stable sp4 Problem: new sp4 Symptoms: have improved sp4 Accepting Physician: [facility](01/21/25 07:31) ll1 Diagnosis - Acute NSTEMI sp4 Forms: - Medication Reconciliation Form sp4 - SBAR form sp4 Critical care time excluding procedures: 05:48 Critical care time: Bedside Care: 36 minutes, Consultation: 12 minutes. Total time: 48 sp4 minutes Signatures: Dispatcher [employer] EDKong Mccoy RN RN ll1 Renuka Joy RN RN ha1 Jamal Kelley MD MD sp4 Haris Avalos RN RN rg5 Corrections: (The following items were deleted from the chart) 00:05 00:04 BASIC METABOLIC PANEL+C.LAB.BRZ ordered. EDMS EDMS 00:05 00:04 CBC+H.LAB.BRZ ordered. EDMS EDMS 00:05 00:04 HEPATIC FUNCTION+C.LAB.BRZ ordered. EDMS EDMS 00:05 00:04 MAGNESIUM+C.LAB.BRZ ordered. EDMS EDMS 00:05 00:04 PROBNP+C.LAB.BRZ ordered. EDMS EDMS 00:05 00:04 PROTIME (+INR)+COAG.LAB.BRZ ordered. EDMS EDMS 00:05 00:04 Troponin High Sensitivity+C.LAB.BRZ ordered. EDMS EDMS 00:05 00:05 Chest Single View+RAD.RAD.BRZ ordered. EDMS EDMS 06:29 06:27 Heparin ([place]-Bolus No thrombolytic) - HEParin IVP 60 units/kg IVP once; Max 5000 sp4 units ordered. sp4 07:31 05:44 [facility] sp4 ll1
--- NOTE | 2025-01-21 05:44 | ER ---
Nurse's Notes [facility] Name: Elpidio Sloan Age: 70 yrs Sex: Male : 1955 Arrival Date: 01/21/2025 Time: 00:03 Bed 16 Private MD: Diagnosis: Acute NSTEMI Presentation: 01/21 00:10 Chief complaint: Patient states: chest pain started an hour and a half ago, my chest ha1 pain got better but now I am having neck pain, back pain. 00:10 Coronavirus screen: Client denies travel out of the [place] in the last 14 days. Ebola ha1 Screen: No symptoms or risks identified at this time. Initial Sepsis Screen: Does the patient meet any 2 criteria? No. Patient's initial sepsis screen is negative. Does the patient have a suspected source of infection? No. Patient's initial sepsis screen is negative. Risk Assessment: Do you want to hurt yourself or someone else? Patient reports no desire to harm self or others. Onset of symptoms was January 21, 2025. 00:10 Method Of Arrival: Wheelchair ha1 00:10 Acuity: JULIEN 2 ha1 Triage Assessment: 00:10 General: Appears uncomfortable, Behavior is calm, cooperative. Pain: Complains of pain ha1 in back and neck Pain currently is 5 out of 10 on a pain scale. Quality of pain is described as aching. Neuro: Level of Consciousness is awake, alert, obeys commands, Oriented to person, place, time, situation. Cardiovascular: Reports chest pain, Heart tones S1 S2 present Patient's skin is warm and dry. Respiratory: Airway is patent Respiratory effort is even, unlabored, Respiratory pattern is regular, symmetrical. Historical: - Allergies: 00:10 Iodine; ha1 00:10 Sulfa (Sulfonamide Antibiotics); ha1 00:10 TETRACYCLINES; ha1 - Home Meds: 00:10 Lipitor 80 mg Oral tab 1 tab once daily [Active]; ha1 - PMHx: 00:10 CAD; Depression; Diabetes - NIDDM; GERD; High Cholesterol; Hyperlipidemia; ha1 Hypertension; Myocardial infarction; - PSHx: 00:10 Cardiac Stents X5; 6 STENTS; Coronary artery bypass graft; ha1 - Immunization history:: Adult Immunizations up to date. - Infectious Disease History:: Denies. - Social history:: Smoking status: unknown. - Family history:: not pertinent. Screenin:[facility] ED Fall Risk Assessment (Adult) History of falling in the last 3 months, rg5 including since admission No falls in past 3 months (0 pts) Confusion or Disorientation No (0 pts) Intoxicated or Sedated No (0 pts) Impaired Gait No (0 pts) Mobility Assist Device Used No (0 pt) Altered Elimination No (0 pt) Score/Fall Risk Level 0 - 2 = Low Risk Oriented to surroundings, Maintained a safe environment, Hourly rounding (assess needs \T\ fall precautionary measures) done. Abuse screen: Denies threats or abuse. Nutritional screening: No deficits noted. Tuberculosis screening: No symptoms or risk factors identified. Assessment: 01:27 General: Appears comfortable, Behavior is calm, cooperative, appropriate for age. Pain: rg5 Complains of pain in chest Pain radiates to back Pain began 3 hours ago. Neuro: Level of Consciousness is awake, alert, obeys commands, Oriented to person, place, time, situation. Cardiovascular: Reports chest pain, Patient's skin is warm and dry. Rhythm is sinus rhythm. Respiratory: Airway is patent Trachea midline Respiratory effort is even, unlabored, Respiratory pattern is regular, symmetrical. GI: Abdomen is round non-distended, Abd is soft and non tender. : No signs and/or symptoms were reported regarding the genitourinary system. EENT: No deficits noted. Derm: Skin is intact, Skin is dry, Skin is normal, Skin temperature is warm. Musculoskeletal: Circulation, motion, and sensation intact. Range of motion: intact in all extremities. 02:39 Reassessment: No changes from previously documented assessment. Patient and/or family rg5 updated on plan of care and expected duration. Pain level reassessed. 03:35 Reassessment: No changes from previously documented assessment. Patient and/or family rg5 updated on plan of care and expected duration. Pain level reassessed. Patient is alert, oriented x 3, equal unlabored respirations, skin warm/dry/pink. 04:25 Reassessment: Patient and/or family updated on plan of care and expected duration. Pain rg5 level reassessed. Patient is alert, oriented x 3, equal unlabored respirations, skin warm/dry/pink. 05:30 Reassessment: Patient and/or family updated on plan of care and expected duration. Pain rg5 level reassessed. Patient is alert, oriented x 3, equal unlabored respirations, skin warm/dry/pink. Patient states symptoms have improved. 07:00 Reassessment: Patient and/or family updated on plan of care and expected duration. Pain ll1 level reassessed. Report received from bit sharpener operator RN. Vital Signs: 00:10 BP 169 / 79; Pulse 60; Resp 15 S; Temp 97; Pulse Ox 98% on R/A; Weight 95.25 kg; Height ha1 5 ft. 10 in. ; 00:52 BP 162 / 93; Pulse 68; Temp 97.7; Pulse Ox 100% on R/A; Weight 92.99 kg (R); Height 5 sa1 ft. 10 in. (R); 01:27 BP 160 / 69; Pulse 60; Resp 17; Pulse Ox 100% on R/A; Pain 6/10; rg5 02:37 BP 145 / 75; Pulse 60; Resp 17; Pulse Ox 97% on R/A; Pain 6/10; rg5 03:35 BP 140 / 70; Pulse 60; Resp 17; Pulse Ox 98% on R/A; Pain 5/10; rg5 04:25 BP 150 / 79; Pulse 61; Pulse Ox 99% on R/A; Pain 5/10; rg5 05:15 BP 148 / 74; Pulse 60; Resp 17; Pulse Ox 97% on R/A; Pain 5/10; rg5 07:18 BP 139 / 72; Pulse 60; Resp 17; Pulse Ox 97% on R/A; ll1 00:52 Body Mass Index 29.41 (92.99 kg, 177.8 cm) sa1 01:27 Pain Scale: Adult rg5 02:37 Pain Scale: Adult rg5 03:35 Pain Scale: Adult rg5 04:25 Pain Scale: Adult rg5 05:15 Pain Scale: Adult rg5 Stephani Coma Score: 05:29 Eye Response: spontaneous(4). Motor Response: obeys commands(6). Verbal Response: sp4 oriented(5). Total: 15. ED Course: 00:03 Patient arrived in ED. jj6 00:04 Jamal Kelley MD is Attending Physician. sp4 00:19 EKG completed in triage. Results shown to MD. rg5 00:20 EKG completed in triage. Results shown to MD. rg5 00:23 Triage completed. ha1 00:31 XRAY Chest (1 view) In Process Unspecified. EDMS 00:57 Haris Avalos, RN is Primary Nurse. rg5 01:27 Patient has correct armband on for positive identification. Bed in low position. Call rg5 light in reach. Side rails up X 1. Client placed on continuous cardiac and pulse oximetry monitoring. NIBP monitoring applied. public health veterinarian on. Pulse ox on. NIBP on. Door closed. Noise minimized. Warm blanket given. Verbal reassurance given. 01:27 No provider procedures requiring assistance completed. Inserted saline lock: 20 gauge rg5 in left wrist, using aseptic technique. Blood collected. Flushed with 10 mL NS. Patient maintains SpO2 saturation greater than 95% on room air. 05:44 attempted to contact [facility] x2 no answer. kmf 05:56 after 4 attempts, initiated transfer with tiago Mackey\ [facility]. kmf 05:59 Provided Education on: needs for admit . rg5 06:[address] Kelley for doc to doc. kmf 06:[address] Kelley for doc to doc. kmf 06:54 pt was accepted to [facility] - room [address]. Accept[address] Arvizu R \T\ 0630. Admin approval kmf given by Tiago Douglas \T\0630. Number for nurse to nurse report [phone]. [facility] to transfer pt. 07:19 Arm band placed on. ll1 07:19 Patient transferred, IV remains in place. ll1 Administered Medications: 01:26 Drug: morphine IVP or IV 6 mg IVP once over 4 mins Route: IVP; Infused Over: 4 mins; rg5 Site: left wrist; 03:45 Follow up: Response: No adverse reaction; Pain is decreased rg5 01:26 Drug: Ondansetron IVP 4 mg IVP once; over 2 minutes Route: IVP; Site: left wrist; rg5 03:44 Follow up: Response: No adverse reaction rg5 01:26 Drug: Famotidine IVP 20 mg IVP once; dilute with 10 mL 0.9% NaCl; give over 2 minutes rg5 Route: IVP; Site: left wrist; 03:44 Follow up: Response: No adverse reaction rg5 04:45 Drug: morphine IVP or IV 4 mg IVP once over 4 mins Route: IVP; Infused Over: 4 mins; rg5 Site: left wrist; 05:57 Follow up: Response: No adverse reaction; Pain is decreased rg5 04:45 Drug: metoCLOPramide IVP 10 mg IVP once; over 1 to 2 minutes Route: IVP; Site: left rg5 wrist; 05:57 Follow up: Response: No adverse reaction; Pain is decreased rg5 04:45 Drug: Enoxaparin Sub-Q 90 mg Sub-Q once Route: Sub-Q; Site: left lower abdomen; rg5 05:57 Follow up: Response: No adverse reaction; Pain is decreased rg5 06:29 CANCELLED (Physician Discretion): Heparin ([place]-Bolus No thrombolytic) - [id number] sp4 units/kg IVP once; Max 5000 units 06:37 Not Given (Patient Refused; patient takes 4 aspirin last night \T\ 2230): aspirinchewable rg5 tablet 324 mg PO once; 81 mg tablets x 4 Medication: 01:27 VIS not applicable for this client. rg5 Outcome: 05:44 ER care complete, transfer ordered by . sp4 07:19 Transferred by ground EMS Transfer form completed. ll1 07:19 Condition: stable 07:19 Instructed on the need for transfer, 07:31 Patient left the ED. ll1 Signatures: Dispatcher [employer] EDMS Kong Weems RN RN ll1 Shannon Dunbar6 Renuka Joy RN RN ha1 Jamal Kelley MD MD sp4 Eulalia Cortes [facility] Haris Avalos RN RN rg5 Sultan Violette [facility] Corrections: (The following items were deleted from the chart) 06:25 06:[address] Kelley for dvo to doc [facility]
[2025-01-21 06:14] VITALS: BMI 29.4
[2025-01-21 07:36] VITALS: TEMP 97.7
[2025-01-21 07:43] VITALS: O2SAT 97
[2025-01-21 07:44] VITALS: BP 139/72
--- NOTE | 2025-01-21 12:49 | P.SSS ---
Patient History Date of Service: 01/21/25 Reason for admission: HE WAS ADMITTED LAST NIGHT FOR UNSTABLE ANGINA. History of Present Illness: RACHEL WAS TRANSFERRED TO [facility] FOR UNSTABLE ANGINA AT NIGHT BEFORE I GET TO SEE HIM THIS AM AT 7:30 WHEN I REACHED ER. Allergies codeine [Codeine] Allergy (Intermediate, Verified 11/18/18 06:12) ITCH, VOMIT Sulfa (Sulfonamide Antibiotics) [Sulfa(Sulfonamide Antibiotics)] Allergy (Intermediate, Verified 11/18/18 06:12) ITCH iodine [Iodine] Adverse Reaction (Severe, Verified 11/18/18 06:12) Anaphylaxis Tetracyclines Adverse Reaction (Verified 11/18/18 06:12) Hives Home Medications: Atorvastatin Calcium [Lipitor] 80 mg PO DAILY 11/18/18 Empagliflozin/Metformin HCl [Synjardy Xr 25-1,000 mg Tablet] 1 each PO DAILY 11/18/18 Fenofibrate [Tricor*] 145 mg PO DAILY 11/18/18 Glimepiride 4 mg PO BID 11/18/18 Isosorbide Mononitrate [Isosorbide Mononitrate ER] 30 mg PO DAILY 11/18/18 Lansoprazole 30 mg PO DAILY 11/18/18 Quetiapine [Seroquel*] 25 mg PO BEDTIME PRN 11/18/18 Quinapril HCl 10 mg PO DAILY 11/18/18 Venlafaxine HCl [Venlafaxine HCl ER] 75 mg PO DAILY 11/18/18 atenoloL [Atenolol] 50 mg PO BID 11/18/18 Aspirin Chewable [Aspirin Chewable*] 81 mg PO DAILY tab.chew 01/16/25 Ticagrelor [Brilinta*] 90 mg PO BID #60 01/16/25 - Past Medical/Surgical History Has patient received pneumonia vaccine in the past: Yes Diabetic: Yes -: dm -: heart attack -: cad -: gerd -: htn -: heart stent (5x) -: bypass LAD graft -: partial knee sx (left) - Family History Father -: Heart disease Mother -: Diabetes - Social History Smoking Status: Never smoker Alcohol use: Yes CD- Drugs: No Caffeine use: Yes Physical Examination - Vital Signs Temperature: 97.7 F Blood Pressure: 139/72 Pulse: 60 Respirations: 17 - Studies Laboratory Data (last 24 hrs) 01/21/25 01/21/25 01/21/25 01:10 01:10 01:10 WBC 8.60 Hgb 14.8 Hct 44.0 Plt Count 131 L PT 12.0 INR 1.06 Sodium 136 Potassium 4.2 BUN 26 H Creatinine 1.14 Glucose 271 H Magnesium 2.0 Total Bilirubin 0.8 AST 19 ALT 37 Alkaline Phosphatase 64 - Disposition Disposition: TRANSFER TO [facility]
--- NOTE | 2025-01-22 14:43 | EKG ---
Test Date: 2025-01-21 Test Time: 00:11:35 Distribution Analyst: LEIDA MEASUREMENT RESULTS: Intervals: Rate: 61 MD: QRSD: 142 QT: 458 QTc: 461 [place]: P: 78 MD: QRS: 106 T: 206 INTERPRETIVE STATEMENTS: Electronic ventricular pacemaker Compared to ECG 05/17/2024 15:05:52 Sinus rhythm no longer present Right bundle-branch block no longer present Left anterior fascicular block no longer present Bifascicular block no longer present Left ventricular hypertrophy no longer present Early repolarization no longer present Electronically Signed On 01-22-25 14:40:24 CDT by Dylan Hunt
== END 2025-01-21 07:15 | disposition home or self-care (01) ==
LOC: ER 00:03 → ERHOLD 04:22
PROVIDERS: ADMIT Internal Medicine; ATTEND Internal Medicine
DX: I21.4 Non-ST elevation (NSTEMI) myocardial infarction (principal); I20.0 Unstable angina; Z88.2 Allergy status to sulfonamides; I25.2 Old myocardial infarction; E11.9 Type 2 diabetes mellitus without complications; I25.10 Atherosclerotic heart disease of native coronary artery without angina pectoris; E78.5 Hyperlipidemia, unspecified; I10 Essential (primary) hypertension
CPT/HCPCS: 85025; 80048; 36415; 83735; 85610; 80076; 84484 ×2; 83880; 71045; J1650; J2765; J2405; 93005